=== PATIENT | female | born 1965 | race American Indian/Alaskan Native ===

== ENCOUNTER 2021-05-02 10:09 | Inpatient (IN) | payer MEDICARE ==
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
--- NOTE | 2021-05-02 12:25 | Cat Scan Report ---
CT BRAIN: 05/02/2021 INDICATION / CLINICAL INFORMATION: Altered Mental Status. COMPARISON: None available. FINDINGS: BRAIN/INTRACRANIAL STRUCTURES: Unenhanced CT images of the brain demonstrate no evidence of acute int racranial abnormality. Ventricles and sulci are prominent in size for a patient of this age, consistent with pronounced diff use cerebral atrophy. Moderate chronic white matter hypoattenuation is present in the periventricular white matter of the c erebral hemispheres, predominantly in the frontal lobes. There is no evidence of acute large vessel territory ischemic injury, hemorrhage, or mass. There are no abnormal extra-axial fluid collections. EXTRACRANIAL STRUCTURES: Unremarkable. IMPRESSION: No acute abnormality. Prominent diffuse cerebral atrophy. All CT scans at this location are performed using dose reduction to ALARA by means of automated expos ure control. Signer Name: Rehan Miner MD Signed: 05/02/2021 12:20 PM Workstation Name: [id number]
[2021-05-02 12:59] LABS: Basophils % (Auto) 0.3 % (0.0-1.8); Hematocrit 37.5 % (30.3-42.9); Hemoglobin 12.4 gm/dl (10.1-14.3); Lymphocytes # (Auto) 0.8 K/mm3 (1.2-5.4); Lymphocytes % (Auto) 13.8 % (13.4-35.0); Mean Corpuscular HGB Conc 33 % (30-34); Mean Corpuscular Volume 88 fl (79-97); Monocytes # (Auto) 0.4 K/mm3 (0.0-0.8); Monocytes % (Auto) 7.6 % (0.0-7.3); Platelet Count 227 K/mm3 (140-440); Red Blood Count 4.27 M/mm3 (3.65-5.03); Red Cell Distribution Width 16.2 % (13.2-15.2)
[2021-05-02 13:05] LABS: INR 0.99 (0.87-1.13)
[2021-05-02 13:06] LABS: Partial Thromboplastin Time 25.8 Sec. (24.2-36.6)
--- NOTE | 2021-05-02 13:14 | XRay Report ---
CHEST 1 VIEW 05/02/2021 1:02 PM INDICATION / CLINICAL INFORMATION: AMS. COMPARISON: None available. FINDINGS: SUPPORT DEVICES: None. HEART / MEDIASTINUM: No significant abnormality. LUNGS / PLEURA: No significant pulmonary or pleural abnormality. Underlying COPD is present. No pneum othorax. ADDITIONAL FINDINGS: No significant additional findings. IMPRESSION: No acute abnormality. Signer Name: Ferny Barnes MD Signed: 05/02/2021 1:09 PM Workstation Name: [email or web address]
[2021-05-02 13:20] LABS: Alanine Aminotransferase 30 units/L (7-56); Albumin 3.3 g/dL (3.9-5); BUN/Creatinine Ratio 31; Blood Urea Nitrogen 25 mg/dL (7-17); Calcium 8.7 mg/dL (8.4-10.2); Hemolysis Index 6
[2021-05-02] MEDS ORDERED: SODIUM CHLORIDE 0.9% 1000 ML 1,000 ML IV ONE (13:24)
[2021-05-02 13:31] LABS: Chol/HDL Ratio 3.59 %; HDL Cholesterol 47 mg/dL (40-59); LDL Cholesterol,Direct 98 mg/dL (50-130)
[2021-05-02] MEDS ORDERED: ZIPRASIDONE MESYLATE 20 MG VIAL IM ONE (16:38)
[2021-05-02] MEDS ORDERED: ZIPRASIDONE MESYLATE 20 MG VIAL IM PRN (18:13)
[2021-05-02 19:18] LABS: Bilirubin,Urine NEG (Negative); Blood,Urine MOD (Negative); Color,Urine Yellow (Yellow); Mucus,Urine FEW /HPF
[2021-05-02 19:21] LABS: Amphetamine Screen,Urine Negative; Benzodiazepines Screen,Urine Negative; Cannabinoid Screen,Urine Negative; Cocaine Screen,Urine Negative; Methadone Screen,Urine Negative; Opiate Screen,Urine Negative
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
--- NOTE | 2021-05-05 13:32 | XRay Report ---
CHEST 1 VIEW INDICATION: hypoxia. COMPARISON: 05/02/2021 FINDINGS: Support devices: None. Heart: Within normal limits. Lungs/Pleura: No acute air space or interstitial disease. Moderate to severe emphysematous changes ar e again noted. No pneumothorax. Additional findings: None. IMPRESSION: No acute findings. Advanced emphysematous changes. Signer Name: Bari Mejía Jr, MD Signed: 05/05/2021 1:28 PM Workstation Name: [id number]
[2021-05-05 14:55] LABS: Basophils # (Auto) 0.1 K/mm3 (0.0-0.1); Basophils % (Auto) 1.2 % (0.0-1.8); Eosinophils % (Auto) 0.7 % (0.0-4.3); Hematocrit 38.8 % (30.3-42.9); Hemoglobin 12.8 gm/dl (10.1-14.3); Lymphocytes % (Auto) 23.3 % (13.4-35.0); Mean Corpuscular HGB Conc 33 % (30-34); Mean Corpuscular Volume 88 fl (79-97); Monocytes # (Auto) 0.3 K/mm3 (0.0-0.8); Monocytes % (Auto) 6.1 % (0.0-7.3); Platelet Count 296 K/mm3 (140-440); Red Blood Count 4.42 M/mm3 (3.65-5.03); Red Cell Distribution Width 15.6 % (13.2-15.2)
[2021-05-05 15:39] LABS: BUN/Creatinine Ratio 23; Blood Urea Nitrogen 14 mg/dL (7-17); Calcium 9.3 mg/dL (8.4-10.2); Hemolysis Index 5
[2021-05-05] MEDS ORDERED: POTASSIUM CHLORIDE ER 20 MEQ TAB PO ONE (15:41)
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
[2021-05-05] MEDS ORDERED: ONDANSETRON 4 MG/2 ML INJ IV PRN ×2 (22:39→22:45)
[2021-05-05] MEDS ORDERED: ACETAMINOPHEN 325 MG TAB PO PRN ×2 (22:39→22:45)
[2021-05-05] MEDS ORDERED: HYDROmorphone 1 MG/1 ML INJ IV PRN (22:45)
[2021-05-05] MEDS ORDERED: SODIUM CHLORIDE 0.9% 1000 ML 1,000 ML IV SCH (22:45)
[2021-05-05] MEDS ORDERED: oxyCODONE /ACETAMINOPHEN 5-325MG TAB PO PRN (22:45)
[2021-05-06] MEDS: dexAMETHasone 4 MG/ML VIAL IV SCH ×2 (01:00→22:52)
[2021-05-06] MEDS: AZITHROMYCIN/NS 500 MG/250 ML 500 MG/250 ML BAG IV SCH ×2 (01:00→22:51)
[2021-05-06] MEDS: cefTRIAXone/NS 2 GM/100 ML 2 GM/100 ML BAG IV SCH (10:12)
[2021-05-06] MEDS: FAMOTIDINE 20 MG TAB PO SCH ×2 (10:12→22:50)
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
[2021-05-06] MEDS: POTASSIUM CHLORIDE 10 MEQ 10 MEQ/100 ML BAG IV SCH ×2 (13:45→14:45)
[2021-05-07 07:45] LABS: Blood Urea Nitrogen 11 mg/dL (7-17); Calcium 8.8 mg/dL (8.4-10.2); Hemolysis Index 2
[2021-05-07 07:47] LABS: BUN/Creatinine Ratio 18
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
[2021-05-07] MEDS: FAMOTIDINE 20 MG TAB PO SCH ×2 (11:00→23:30)
[2021-05-07] MEDS: cefTRIAXone/NS 2 GM/100 ML 2 GM/100 ML BAG IV SCH (11:35)
--- NOTE | 2021-05-07 12:21 | Consultation ---
History of Present Illness - Reason for Consult Consult date: 05/07/21 COVID-19 - History of Present Illness 56 old [id number] female with history of stroke, admitted due to altered mental status. Patient tested positive for COVID-19 on 05/03/2021. Patient was found hypoxic at home. Patient is bedridden. O2 sat dropped to 86% on room air. Chest x-ray shows no acute infiltrates. Review of Systems: reviewed ED and H&P notes. Review of system deferred to minimize COVID-19 transmission. Medications and Allergies Allergies Allergy/AdvReac Type Severity Reaction Status Date / Time No Known Allergies Allergy Unverified 05/02/21 11:07 Home Medications Medication Instructions Recorded Confirmed Last Taken Type hydroCHLOROthiazide 25 mg PO DAILY #30 tablet 11/25/14 Unknown Rx [Hydrochlorothiazide] Active Meds: Active Medications Acetaminophen (Acetaminophen 325 Mg Tab) 650 mg PO Q4H PRN PRN Reason: Pain MILD(1-3)/Fever >100.5/DEVLIN Dexamethasone (Dexamethasone 4 Mg/Ml Vial) 8 mg IV Q24H [facility] Last Admin: 05/06/21 22:52 Dose: 8 mg Documented by: Famotidine (Famotidine 20 Mg Tab) 20 mg PO BID [facility] Last Admin: 05/06/21 22:50 Dose: 20 mg Documented by: Hydromorphone HCl (Hydromorphone 1 Mg/1 Ml Inj) 0.5 mg IV Q3H PRN PRN Reason: Pain , Severe (7-10) Azithromycin (Zithromax/Ns) 500 mg in 250 mls @ 250 mls/hr IV Q24H [facility] Last Admin: 05/06/21 22:51 Dose: 250 mls/hr Documented by: Ceftriaxone Sodium (Rocephin/Ns 2 Gm/100 Ml) 2 gm in 100 mls @ 200 mls/hr IV Q24HR [facility]; Protocol Last Admin: 05/06/21 10:12 Dose: 200 mls/hr Documented by: Ondansetron HCl (Ondansetron 4 Mg/2 Ml Inj) 4 mg IV Q8H PRN PRN Reason: Nausea And Vomiting Oxycodone/Acetaminophen (Oxycodone /Acetaminophen 5-325mg Tab) 1 tab PO Q6H PRN PRN Reason: Pain, Moderate (4-6) Sodium Chloride (Sodium Chloride 0.9% 10 Ml Flush Syringe) 10 ml IV BID [facility] Last Admin: 05/06/21 22:50 Dose: 10 ml Documented by: Sodium Chloride (Sodium Chloride 0.9% 10 Ml Flush Syringe) 10 ml IV PRN PRN PRN Reason: LINE FLUSH Sodium Chloride (Sodium Chloride 0.9% 10 Ml Flush Syringe) 10 ml IV BID [facility] Last Admin: 05/06/21 22:51 Dose: 10 ml Documented by: Sodium Chloride (Sodium Chloride 0.9% 10 Ml Flush Syringe) 10 ml IV PRN PRN PRN Reason: LINE FLUSH Physical Examination - Physical Exam Narrative exam: Physical exam deferred to minimize COVID-19 transmission during pandemic. ER and internal medicine physical examination notes reviewed. - Constitutional Vitals: Vital Signs Temp Pulse Resp BP Pulse Ox 98.9 F 86 18 124/89 97 05/07/21 03:30 05/07/21 03:30 05/07/21 03:30 05/07/21 03:30 05/07/21 12:07 Temperature -Last 24 Hours Temperature 98.9 F Temperature 97.9 F Results - Labs CBC & Chem 7: 05/05/21 13:42 05/07/21 06:58 Labs: Abnormal lab results 05/06/21 05/07/21 Range/Units 09:00 06:58 Chloride 107.7 H (98-107) mmol/L Glucose 119 H (65-100) mg/dL Coronavirus (PCR) Positive A (Negative) Assessment and Plan Cultures: SARS CoV2 PCR positive Assessment: 56 old [id number] female with history of stroke, admitted due to altered mental status. Patient tested positive for COVID-19 on 05/03/2021: #Severe COVID infection: Chest x-ray without consolidation. Elevated markers. #Acute hypoxemic respiratory failure: O2 sat dropped to 86% initially. Patient currently on room air. #Elevated LFTs: Mild, from COVID #Acute mental status: Likely from COVID-19. Recommendations: -Continue dexamethasone 6 mg IV/PO daily for 10 days -No indication for remdesivir as patient is on room air -Monitor inflammatory markers - ferritin, Ddimer, CRP, LDH -Continue anticoagulation per System Protocol -Prone positioning as possible -Stop ceftriaxone and azithromycin, procalcitonin <0.25 ng/mL All laboratory, cultures and imaging were reviewed. Will follow Shantal Vela MD Infectious Diseases Integrated Specialist [facility] ([facility] M [phone] O [phone]
[2021-05-07] MEDS: dexAMETHasone 4 MG/ML VIAL IV SCH (23:32)
[2021-05-07] MEDS: AZITHROMYCIN/NS 500 MG/250 ML 500 MG/250 ML BAG IV SCH (23:40)
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
[2021-05-08] MEDS: cefTRIAXone/NS 2 GM/100 ML 2 GM/100 ML BAG IV SCH (10:36)
[2021-05-08] MEDS: FAMOTIDINE 20 MG TAB PO SCH ×2 (10:36→21:40)
[2021-05-08] MEDS: ENOXAPARIN 40 MG/0.4 ML INJ SUB-Q SCH (10:37)
[2021-05-08] MEDS: DEXAMETHASONE 4 MG TAB PO SCH (14:01)
--- NOTE | 2021-05-08 14:21 | Progress Note ---
Assessment and Plan Cultures: SARS CoV2 PCR positive 05/02/2021 blood culture: No growth Assessment: 56 old [id number] female with history of stroke, admitted due to altered mental status. Patient tested positive for COVID-19 on 05/03/2021: #COVID infection: Chest x-ray without consolidation. Elevated markers. #Acute hypoxia: O2 sat briefly dropped to 86% initially. Patient currently on room air. #Elevated LFTs: Mild, from COVID #Encephalopathy, aphasic and bedbound #HIV screening test positive Recommendations: -HIV RNA PCR, CD4 count ordered -Continue dexamethasone 6 mg IV/PO daily for 10 days -No indication for remdesivir as patient is on room air -Monitor inflammatory markers - ferritin, Ddimer, CRP, LDH -Continue anticoagulation per System Protocol Caro Sullivan MD, FACP [facility] ([facility]) O: [phone] F: [phone] Subjective Date of service: 05/08/21 Principal diagnosis: Altered mental status Interval history: Afebrile. Weaned to room air. Patient bedbound, nonverbal at baseline. Objective - Exam Narrative Exam: Physical Exam (reviewed in chart to minimize risk of transmission) Constitutional: deferred Head, Ears, Nose: deferred Eyes: deferred Neck: deferred Oral: deferred Cardiovascular: deferred Respiratory: deferred GI: deferred Musculoskeletal: deferred Skin: deferred Hem/Lymphatic: deferred Psych: deferred Neurological: deferred - Constitutional Vitals: Vital Signs Temp Pulse Resp BP Pulse Ox 98.6 F 85 16 118/70 96 05/08/21 11:29 05/08/21 11:29 05/08/21 11:29 05/08/21 11:29 05/08/21 11:29 Temperature -Last 24 Hours Temperature 98.6 F Temperature 98.0 F Temperature 98 F - Labs CBC & Chem 7: 05/05/21 13:42 05/07/21 06:58
[2021-05-08] MEDS ORDERED: amLODIPine 10 MG TAB PO ONE (18:41)
[2021-05-08] MEDS ORDERED: hydrALAZINE 20 MG/1 ML INJ IV ONE (18:41)
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
[2021-05-09] MEDS: FAMOTIDINE 20 MG TAB PO SCH ×2 (10:01→22:28)
[2021-05-09] MEDS: ENOXAPARIN 40 MG/0.4 ML INJ SUB-Q SCH (10:01)
[2021-05-09] MEDS: DEXAMETHASONE 4 MG TAB PO SCH (10:02)
--- NOTE | 2021-05-09 14:20 | Progress Note ---
Assessment and Plan Cultures: SARS CoV2 PCR positive 05/02/2021 blood culture: No growth Assessment: 56 old [id number] female with history of stroke, admitted due to altered mental status. Patient tested positive for COVID-19 on 05/03/2021: #COVID infection: Chest x-ray without consolidation. Elevated markers. #Acute hypoxia: O2 sat briefly dropped to 86% initially. Patient currently on room air. #Elevated LFTs: Mild, from COVID #Encephalopathy, aphasic and bedbound #HIV test positive: unclear why was the test done, regardless with positive test, will need full work up and if positive PCR, will need treatment. Recommendations: -f/u HIV RNA PCR, CD4 count -complete dexamethasone 6 mg IV/PO daily for 10 days -will need to follow up in ID clinic in 2-3 weeks for HIV RNA PCR and CD4 count results ID will sign off. Please call with questions. Caro Sullivan MD, FACP [facility] ([facility]) O: [phone] F: [phone] Subjective Date of service: 05/09/21 Principal diagnosis: Altered mental status Interval history: Afebrile. Remains on room air. Patient bedbound, nonverbal at baseline. Objective - Exam Narrative Exam: Physical Exam (reviewed in chart to minimize risk of transmission) Constitutional: deferred Head, Ears, Nose: deferred Eyes: deferred Neck: deferred Oral: deferred Cardiovascular: deferred Respiratory: deferred GI: deferred Musculoskeletal: deferred Skin: deferred Hem/Lymphatic: deferred Psych: deferred Neurological: deferred - Constitutional Vitals: Vital Signs Temp Pulse Resp BP Pulse Ox 98.2 F 104 H 20 134/76 96 05/09/21 06:15 05/09/21 06:15 05/09/21 06:15 05/09/21 06:15 05/09/21 10:23 Temperature -Last 24 Hours Temperature 98.2 F Temperature 98.6 F Temperature 99.8 F - Labs CBC & Chem 7: 05/05/21 13:42 05/07/21 06:58
--- NOTE | 2021-05-10 07:32 | Progress Note ---
Assessment and Plan Assessment and plan: 56 old [id number] female with history of stroke, admitted due to altered mental status. Patient tested positive for COVID-19 on 05/03/2021: COVID-19 infection Sepsis. Patient meets criteria given the tachycardia, altered mentation and COVID-19 infection Acute hypoxic respiratory failure Hypernatremia Transaminitis Toxic metabolic encephalopathy HIV screening test positive 05/09/2021. Physical therapy recommends SNF and awaiting placement per case management. Patient with positive Covid test 05/03 and 05/06. Follow-up HIV RNA PCR and CD4 count. Continue dexamethasone 6 mg IV for total of 10 days. No indication for remdesivir as patient is on room air. Continue to monitor inflammatory markers. Continue anticoagulation per protocol. 05/10/2021. Await SNF placement. However, patient with positive Covid test 05/03 and 05/06. Follow-up HIV RNA PCR and CD4 count. Continue dexamethasone 6 mg IV for total of 10 days. No indication for remdesivir as patient is on room air. Continue to monitor inflammatory markers. Continue anticoagulation per protocol. History Interval history: No new issues Hospitalist Physical - Constitutional Vitals: Temp Pulse Resp BP Pulse Ox 97.9 F 62 19 123/75 93 05/10/21 05:38 05/10/21 05:38 05/10/21 05:38 05/10/21 05:38 05/10/21 05:38 General appearance: Present: no acute distress - EENT Eyes: Present: PERRL, EOM intact ENT: hearing intact, clear oral mucosa, dentition normal - Neck Neck: Present: supple, normal ROM - Respiratory Respiratory effort: normal Respiratory: bilateral: CTA - Cardiovascular Rhythm: regular Heart Sounds: Present: S1 & S2. Absent: gallop, rub - Extremities Extremities: no ischemia, No edema, Full ROM - Abdominal General gastrointestinal: soft, non-tender, non-distended, normal bowel sounds - Integumentary Integumentary: Present: clear, warm, dry - Neurologic Neurologic: CNII-XII intact, moves all extremities HEART Score - HEART Score Troponin: Troponin T 0.030 ng/mL (0.00-0.029) H 05/02/21 19:22 Results - Labs CBC & Chem 7: 05/05/21 13:42 05/07/21 06:58 Labs: Laboratory Last Values WBC 4.5 K/mm3 (4.5-11.0) 05/05/21 13:42 RBC 4.42 M/mm3 (3.65-5.03) 05/05/21 13:42 Hgb 12.8 gm/dl (10.1-14.3) 05/05/21 13:42 Hct 38.8 % (30.3-42.9) 05/05/21 13:42 MCV 88 fl (79-97) 05/05/21 13:42 MCH 29 pg (28-32) 05/05/21 13:42 MCHC 33 % (30-34) 05/05/21 13:42 RDW 15.6 % (13.2-15.2) H 05/05/21 13:42 Plt Count 296 K/mm3 (140-440) 05/05/21 13:42 Lymph % (Auto) 23.3 % (13.4-35.0) 05/05/21 13:42 [place] % (Auto) 6.1 % (0.0-7.3) 05/05/21 13:42 Eos % (Auto) 0.7 % (0.0-4.3) 05/05/21 13:42 Baso % (Auto) 1.2 % (0.0-1.8) 05/05/21 13:42 Lymph # (Auto) 1.0 K/mm3 (1.2-5.4) L 05/05/21 13:42 [place] # (Auto) 0.3 K/mm3 (0.0-0.8) 05/05/21 13:42 Eos # (Auto) 0.0 K/mm3 (0.0-0.4) 05/05/21 13:42 Baso # (Auto) 0.1 K/mm3 (0.0-0.1) 05/05/21 13:42 Seg Neutrophils % 68.7 % (40.0-70.0) 05/05/21 13:42 Seg Neutrophils # 3.1 K/mm3 (1.8-7.7) 05/05/21 13:42 PT 13.6 Sec. (12.2-14.9) 05/02/21 12:19 INR 0.99 (0.87-1.13) 05/02/21 12:19 APTT 25.8 Sec. (24.2-36.6) 05/02/21 12:19 D-Dimer 665.29 ng/mlDDU (0-234) H 05/05/21 13:42 Sodium 143 mmol/L (137-145) 05/07/21 06:58 Potassium 4.4 mmol/L (3.6-5.0) D 05/07/21 06:58 Chloride 107.7 mmol/L (98-107) H 05/07/21 06:58 Carbon Dioxide 26 mmol/L (22-30) 05/07/21 06:58 Anion Gap 14 mmol/L 05/07/21 06:58 BUN 11 mg/dL (7-17) 05/07/21 06:58 Creatinine 0.6 mg/dL (0.6-1.2) 05/07/21 06:58 Estimated GFR > 60 ml/min 05/07/21 06:58 BUN/Creatinine Ratio 18 % 05/07/21 06:58 Glucose 119 mg/dL (65-100) H 05/07/21 06:58 Lactic Acid 1.10 mmol/L (0.7-2.0) 05/02/21 12:19 Calcium 8.8 mg/dL (8.4-10.2) 05/07/21 06:58 Ferritin 913.0 ng/mL (10.0-200.0) H 05/05/21 13:42 Total Bilirubin 0.30 mg/dL (0.1-1.2) 05/02/21 12:04 AST 77 units/L (5-40) H 05/02/21 12:04 ALT 30 units/L (7-56) 05/02/21 12:04 Alkaline Phosphatase 48 units/L (35-129) 05/02/21 12:04 Ammonia 33.0 umol/L (25-60) 05/02/21 12:19 Lactate Dehydrogenase 317 units/L (91-180) H 05/05/21 13:42 Troponin T 0.030 ng/mL (0.00-0.029) H 05/02/21 19:22 C-Reactive Protein 5.10 mg/dL (0.00-1.30) H 05/05/21 13:42 NT-Pro-B Natriuret Pep 243.4 pg/mL (0-900) 05/02/21 12:04 Total Protein 6.8 g/dL (6.3-8.2) 05/02/21 12:04 Albumin 3.3 g/dL (3.9-5) L 05/02/21 12:04 Albumin/Globulin Ratio 0.9 % 05/02/21 12:04 Triglycerides 140 mg/dL (2-149) 05/02/21 12:04 Cholesterol 169 mg/dL (50-199) 05/02/21 12:04 LDL Cholesterol Direct 98 mg/dL (50-130) 05/02/21 12:04 HDL Cholesterol 47 mg/dL (40-59) 05/02/21 12:04 Cholesterol/HDL Ratio 3.59 % 05/02/21 12:04 Procalcitonin 0.11 ng/mL (<0.15) 05/05/21 13:42 Urine Color Yellow (Yellow) 05/02/21 Unknown Urine Turbidity Clear (Clear) 05/02/21 Unknown Urine pH 7.0 (5.0-7.0) 05/02/21 Unknown Ur Specific [place] 1.014 (1.003-1.030) 05/02/21 Unknown Urine Protein 100 mg/dl mg/dL (Negative) 05/02/21 Unknown Urine Glucose (UA) Neg mg/dL (Negative) 05/02/21 Unknown Urine Ketones Neg mg/dL (Negative) 05/02/21 Unknown Urine Blood Mod (Negative) 05/02/21 Unknown Urine Nitrite Neg (Negative) 05/02/21 Unknown Urine Bilirubin Neg (Negative) 05/02/21 Unknown Urine Urobilinogen 2.0 mg/dL (<2.0) 05/02/21 Unknown Ur Leukocyte Esterase Sm (Negative) 05/02/21 Unknown Urine WBC (Auto) 5.0 /HPF (0.0-6.0) 05/02/21 Unknown Urine RBC (Auto) 3.0 /HPF (0.0-6.0) 05/02/21 Unknown U Epithel Cells (Auto) 2.0 /HPF (0-13.0) 05/02/21 Unknown Urine Mucus Few /HPF 05/02/21 Unknown Salicylates < 0.3 mg/dL (2.8-20.0) L 05/02/21 12:04 Urine Opiates Screen Negative 05/02/21 Unknown Urine Methadone Screen Negative 05/02/21 Unknown Acetaminophen 5.0 ug/mL (10.0-30.0) L 05/02/21 12:04 Ur Barbiturates Screen Negative 05/02/21 Unknown Ur Phencyclidine Scrn Negative 05/02/21 Unknown Ur Amphetamines Screen Negative 05/02/21 Unknown U Benzodiazepines Scrn Negative 05/02/21 Unknown Urine Cocaine Screen Negative 05/02/21 Unknown U Marijuana (THC) Screen Negative 05/02/21 Unknown Drugs of Abuse Note Disclamer 05/02/21 Unknown Plasma/Serum Alcohol < 0.01 % (0-0.07) 05/02/21 12:04 Coronavirus (PCR) Positive (Negative) A 05/06/21 09:00 HIV 1&2 Antibody Rapid Reactive (Non React) 05/08/21 08:12 HIV P24 Antigen Non react (Non React) 05/08/21 08:12 Dennis/IV: Voiding Method Incontinent Active Medications - Current Medications Current Medications: Generic Name Dose Route Start Last Admin Trade Name Freq PRN Reason Stop Dose Admin Acetaminophen 650 mg 05/05/21 22:39 Acetaminophen 325 Mg Tab PO Q4H PRN Pain MILD(1-3)/Fever >100.5/DEVLIN Dexamethasone 6 mg 05/08/21 12:00 05/09/21 10:02 Dexamethasone 4 Mg Tab PO 05/14/21 10:01 6 mg DAILY DIANNE Administration Enoxaparin Sodium 40 mg 05/08/21 10:00 05/09/21 10:01 Enoxaparin 40 Mg/0.4 Ml Inj SUB-Q 40 mg QDAY@1000 DIANNE Administration Famotidine 20 mg 05/06/21 10:00 05/09/21 22:28 Famotidine 20 Mg Tab PO 20 mg BID DIANNE Administration Hydromorphone HCl 0.5 mg 05/05/21 22:45 Hydromorphone 1 Mg/1 Ml Inj IV Q3H PRN Pain , Severe (7-10) Ondansetron HCl 4 mg 05/05/21 22:39 Ondansetron 4 Mg/2 Ml Inj IV Q8H PRN Nausea And Vomiting Oxycodone/Acetaminophen 1 tab 05/05/21 22:45 Oxycodone /Acetaminophen 5-325mg Tab PO Q6H PRN Pain, Moderate (4-6) Sodium Chloride 10 ml 05/06/21 10:00 05/09/21 22:28 Sodium Chloride 0.9% 10 Ml Flush Syringe IV 10 ml BID DIANNE Administration Sodium Chloride 10 ml 05/05/21 22:39 Sodium Chloride 0.9% 10 Ml Flush Syringe IV PRN PRN LINE FLUSH Sodium Chloride 10 ml 05/06/21 10:00 05/09/21 22:29 Sodium Chloride 0.9% 10 Ml Flush Syringe IV Not Given BID DIANNE Sodium Chloride 10 ml 05/05/21 22:45 Sodium Chloride 0.9% 10 Ml Flush Syringe IV PRN PRN LINE FLUSH Nutrition/Malnutrition Assess - Dietary Evaluation Nutrition/Malnutrition Findings: Nutrition Notes Start: 05/08/21 12:06 Freq: Status: Active Protocol: Document 05/08/21 12:06 JUAN (Rec: 05/08/21 12:12 [email or web address] [email or web address]) Nutrition Notes Need for Assessment generated from: human resources partner,MST Initial or Follow up Assessment Current Diagnosis Hypertension,Malnutrition, Stroke Other Pertinent Diagnosis COVID-19 (+), AMS, HIV, Aphasia Current Diet Cardiac + Ensure Enlive daily Labs/Tests Reviewed Pertinent Medications Decadron Height 5 ft 9 in Weight 49.89 kg [place] Body Weight (kg) 65.90 BMI 16.2 Intake Prior to Admission Poor Weight Status Underweight Subjective/Other Information Pt screened for malnutrition risk and low BMI. Pt non- verbal sec to hx of CVA. 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 She consumed 75% of breakfast this am. Burn Absent Trauma Absent Minimum of two criteria Yes Energy Intake (severe) < or equal to 50% Estimated Energy Requirement > or equal to 5 days Body Fat Depletion Moderate depletion (severe) Muscle Mass Moderate Depletion (severe) Protein-Calorie Malnutrition Severe #1 Nutrition Diagnosis Malnutrition Etiology chronic illness As Evidenced by Signs and Symptoms inadequate PO intake, BMI <18. 5, signs of dehydration Is patient on ventilator? No Is Patient Ambulatory and/or Out of Bed No REE-([facility]-confined to bed) 1388.712 Kcal/Kg value to use for calculation 35 Approximate Energy Requirements Using 1746 kcal/Kg Calculation Used for Recommendations Kcal/kg Additional Notes Pro needs 1.2-1.5g/k-75g/ day Fluid needs 1ml/kcal Nutrition Intervention Change Diet Order: Continue current diet order Add Supplement/Snack (indicate name/kcal Ensure Enlive TID /protein ) Provides kCal: 1,050 Provides Protein (gm) 60 Goal #1 PO intake of meals plus ONS to meet 100% energy and pro needs Goal #2 Wt maintenance and/or gain Anticipated Discharge Needs: Continue ONS 2-3 times daily for wt maintenance Follow-Up By: 05/10/21 Additional Comments F/U: intakes (meals, ONS)
[2021-05-10] MEDS: FAMOTIDINE 20 MG TAB PO SCH ×2 (11:07→21:56)
[2021-05-10] MEDS: ENOXAPARIN 40 MG/0.4 ML INJ SUB-Q SCH (11:07)
[2021-05-10] MEDS: DEXAMETHASONE 4 MG TAB PO SCH (11:07)
--- NOTE | 2021-05-10 17:17 | Electrocardiograph Report ---
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
--- NOTE | 2021-05-11 10:19 | Progress Note ---
Assessment and Plan Assessment and plan: 56 old [id number] female with history of stroke, admitted due to altered mental status. Patient tested positive for COVID-19 on 05/03/2021: COVID-19 infection Sepsis. Patient meets criteria given the tachycardia, altered mentation and COVID-19 infection Acute hypoxic respiratory failure Hypernatremia Transaminitis Toxic metabolic encephalopathy HIV screening test positive 05/09/2021. Physical therapy recommends SNF and awaiting placement per case management. Patient with positive Covid test 05/03 and 05/06. Follow-up HIV RNA PCR and CD4 count. Continue dexamethasone 6 mg IV for total of 10 days. No indication for remdesivir as patient is on room air. Continue to monitor inflammatory markers. Continue anticoagulation per protocol. 05/10/2021. Await SNF placement. However, patient with positive Covid test 05/03 and 05/06. Follow-up HIV RNA PCR and CD4 count. Continue dexamethasone 6 mg IV for total of 10 days. No indication for remdesivir as patient is on room air. Continue to monitor inflammatory markers. Continue anticoagulation per protocol. 05/11/2021. No new issues. Await SNF placement. However, patient with positive Covid test 05/03 and 05/06. Follow-up HIV RNA PCR and CD4 count. Continue dexamethasone 6 mg IV for total of 10 days. No indication for remdesivir as patient is on room air. Continue to monitor inflammatory markers. Continue anticoagulation per protocol. History Interval history: No new issues Hospitalist Physical - Constitutional Vitals: Temp Pulse Resp BP Pulse Ox 98.2 F 61 18 119/93 100 05/11/21 03:54 05/11/21 03:54 05/11/21 03:54 05/11/21 03:54 05/11/21 08:36 General appearance: Present: no acute distress - EENT Eyes: Present: PERRL, EOM intact ENT: hearing intact, clear oral mucosa, dentition normal - Neck Neck: Present: supple, normal ROM - Respiratory Respiratory effort: normal Respiratory: bilateral: CTA - Cardiovascular Rhythm: regular Heart Sounds: Present: S1 & S2. Absent: gallop, rub - Extremities Extremities: no ischemia, No edema, Full ROM - Abdominal General gastrointestinal: soft, non-tender, non-distended, normal bowel sounds - Integumentary Integumentary: Present: clear, warm, dry - Neurologic Neurologic: CNII-XII intact, moves all extremities HEART Score - HEART Score Troponin: Troponin T 0.030 ng/mL (0.00-0.029) H 05/02/21 19:22 Results - Labs CBC & Chem 7: 05/05/21 13:42 05/07/21 06:58 Labs: Laboratory Last Values WBC 4.5 K/mm3 (4.5-11.0) 05/05/21 13:42 RBC 4.42 M/mm3 (3.65-5.03) 05/05/21 13:42 Hgb 12.8 gm/dl (10.1-14.3) 05/05/21 13:42 Hct 38.8 % (30.3-42.9) 05/05/21 13:42 MCV 88 fl (79-97) 05/05/21 13:42 MCH 29 pg (28-32) 05/05/21 13:42 MCHC 33 % (30-34) 05/05/21 13:42 RDW 15.6 % (13.2-15.2) H 05/05/21 13:42 Plt Count 296 K/mm3 (140-440) 05/05/21 13:42 Lymph % (Auto) 23.3 % (13.4-35.0) 05/05/21 13:42 [place] % (Auto) 6.1 % (0.0-7.3) 05/05/21 13:42 Eos % (Auto) 0.7 % (0.0-4.3) 05/05/21 13:42 Baso % (Auto) 1.2 % (0.0-1.8) 05/05/21 13:42 Lymph # (Auto) 1.0 K/mm3 (1.2-5.4) L 05/05/21 13:42 [place] # (Auto) 0.3 K/mm3 (0.0-0.8) 05/05/21 13:42 Eos # (Auto) 0.0 K/mm3 (0.0-0.4) 05/05/21 13:42 Baso # (Auto) 0.1 K/mm3 (0.0-0.1) 05/05/21 13:42 Seg Neutrophils % 68.7 % (40.0-70.0) 05/05/21 13:42 Seg Neutrophils # 3.1 K/mm3 (1.8-7.7) 05/05/21 13:42 PT 13.6 Sec. (12.2-14.9) 05/02/21 12:19 INR 0.99 (0.87-1.13) 05/02/21 12:19 APTT 25.8 Sec. (24.2-36.6) 05/02/21 12:19 D-Dimer 665.29 ng/mlDDU (0-234) H 05/05/21 13:42 Sodium 143 mmol/L (137-145) 05/07/21 06:58 Potassium 4.4 mmol/L (3.6-5.0) D 05/07/21 06:58 Chloride 107.7 mmol/L (98-107) H 05/07/21 06:58 Carbon Dioxide 26 mmol/L (22-30) 05/07/21 06:58 Anion Gap 14 mmol/L 05/07/21 06:58 BUN 11 mg/dL (7-17) 05/07/21 06:58 Creatinine 0.6 mg/dL (0.6-1.2) 05/07/21 06:58 Estimated GFR > 60 ml/min 05/07/21 06:58 BUN/Creatinine Ratio 18 % 05/07/21 06:58 Glucose 119 mg/dL (65-100) H 05/07/21 06:58 POC Glucose 142 mg/dL (70-105) H 05/11/21 08:06 Lactic Acid 1.10 mmol/L (0.7-2.0) 05/02/21 12:19 Calcium 8.8 mg/dL (8.4-10.2) 05/07/21 06:58 Ferritin 913.0 ng/mL (10.0-200.0) H 05/05/21 13:42 Total Bilirubin 0.30 mg/dL (0.1-1.2) 05/02/21 12:04 AST 77 units/L (5-40) H 05/02/21 12:04 ALT 30 units/L (7-56) 05/02/21 12:04 Alkaline Phosphatase 48 units/L (35-129) 05/02/21 12:04 Ammonia 33.0 umol/L (25-60) 05/02/21 12:19 Lactate Dehydrogenase 317 units/L (91-180) H 05/05/21 13:42 Troponin T 0.030 ng/mL (0.00-0.029) H 05/02/21 19:22 C-Reactive Protein 5.10 mg/dL (0.00-1.30) H 05/05/21 13:42 NT-Pro-B Natriuret Pep 243.4 pg/mL (0-900) 05/02/21 12:04 Total Protein 6.8 g/dL (6.3-8.2) 05/02/21 12:04 Albumin 3.3 g/dL (3.9-5) L 05/02/21 12:04 Albumin/Globulin Ratio 0.9 % 05/02/21 12:04 Triglycerides 140 mg/dL (2-149) 05/02/21 12:04 Cholesterol 169 mg/dL (50-199) 05/02/21 12:04 LDL Cholesterol Direct 98 mg/dL (50-130) 05/02/21 12:04 HDL Cholesterol 47 mg/dL (40-59) 05/02/21 12:04 Cholesterol/HDL Ratio 3.59 % 05/02/21 12:04 Procalcitonin 0.11 ng/mL (<0.15) 05/05/21 13:42 Urine Color Yellow (Yellow) 05/02/21 Unknown Urine Turbidity Clear (Clear) 05/02/21 Unknown Urine pH 7.0 (5.0-7.0) 05/02/21 Unknown Ur Specific [place] 1.014 (1.003-1.030) 05/02/21 Unknown Urine Protein 100 mg/dl mg/dL (Negative) 05/02/21 Unknown Urine Glucose (UA) Neg mg/dL (Negative) 05/02/21 Unknown Urine Ketones Neg mg/dL (Negative) 05/02/21 Unknown Urine Blood Mod (Negative) 05/02/21 Unknown Urine Nitrite Neg (Negative) 05/02/21 Unknown Urine Bilirubin Neg (Negative) 05/02/21 Unknown Urine Urobilinogen 2.0 mg/dL (<2.0) 05/02/21 Unknown Ur Leukocyte Esterase Sm (Negative) 05/02/21 Unknown Urine WBC (Auto) 5.0 /HPF (0.0-6.0) 05/02/21 Unknown Urine RBC (Auto) 3.0 /HPF (0.0-6.0) 05/02/21 Unknown U Epithel Cells (Auto) 2.0 /HPF (0-13.0) 05/02/21 Unknown Urine Mucus Few /HPF 05/02/21 Unknown Salicylates < 0.3 mg/dL (2.8-20.0) L 05/02/21 12:04 Urine Opiates Screen Negative 05/02/21 Unknown Urine Methadone Screen Negative 05/02/21 Unknown Acetaminophen 5.0 ug/mL (10.0-30.0) L 05/02/21 12:04 Ur Barbiturates Screen Negative 05/02/21 Unknown Ur Phencyclidine Scrn Negative 05/02/21 Unknown Ur Amphetamines Screen Negative 05/02/21 Unknown U Benzodiazepines Scrn Negative 05/02/21 Unknown Urine Cocaine Screen Negative 05/02/21 Unknown U Marijuana (THC) Screen Negative 05/02/21 Unknown Drugs of Abuse Note Disclamer 05/02/21 Unknown Plasma/Serum Alcohol < 0.01 % (0-0.07) 05/02/21 12:04 Coronavirus (PCR) Positive (Negative) A 05/06/21 09:00 HIV 1&2 Antibody Rapid Reactive (Non React) 05/08/21 08:12 HIV P24 Antigen Non react (Non React) 05/08/21 08:12 Dennis/IV: Voiding Method Incontinent Active Medications - Current Medications Current Medications: Generic Name Dose Route Start Last Admin Trade Name Freq PRN Reason Stop Dose Admin Acetaminophen 650 mg 05/05/21 22:39 Acetaminophen 325 Mg Tab PO Q4H PRN Pain MILD(1-3)/Fever >100.5/DEVLIN Dexamethasone 6 mg 05/08/21 12:00 05/10/21 11:07 Dexamethasone 4 Mg Tab PO 05/14/21 10:01 6 mg DAILY DIANNE Administration Enoxaparin Sodium 40 mg 05/08/21 10:00 05/10/21 11:07 Enoxaparin 40 Mg/0.4 Ml Inj SUB-Q 40 mg QDAY@1000 DIANNE Administration Famotidine 20 mg 05/06/21 10:00 05/10/21 21:56 Famotidine 20 Mg Tab PO 20 mg BID DIANNE Administration Hydromorphone HCl 0.5 mg 05/05/21 22:45 Hydromorphone 1 Mg/1 Ml Inj IV Q3H PRN Pain , Severe (7-10) Ondansetron HCl 4 mg 05/05/21 22:39 Ondansetron 4 Mg/2 Ml Inj IV Q8H PRN Nausea And Vomiting Oxycodone/Acetaminophen 1 tab 05/05/21 22:45 Oxycodone /Acetaminophen 5-325mg Tab PO Q6H PRN Pain, Moderate (4-6) Sodium Chloride 10 ml 05/06/21 10:00 05/10/21 21:56 Sodium Chloride 0.9% 10 Ml Flush Syringe IV 10 ml BID DIANNE Administration Sodium Chloride 10 ml 05/05/21 22:39 Sodium Chloride 0.9% 10 Ml Flush Syringe IV PRN PRN LINE FLUSH Sodium Chloride 10 ml 05/06/21 10:00 05/10/21 21:56 Sodium Chloride 0.9% 10 Ml Flush Syringe IV Not Given BID DIANNE Sodium Chloride 10 ml 05/05/21 22:45 Sodium Chloride 0.9% 10 Ml Flush Syringe IV PRN PRN LINE FLUSH Nutrition/Malnutrition Assess - Dietary Evaluation Nutrition/Malnutrition Findings: Nutrition Notes Start: 05/08/21 12:06 Freq: Status: Active Protocol: Document 05/10/21 08:50 SG (Rec: 05/10/21 09:05 [id number]) Nutrition Notes Need for Assessment generated from: Low BMI Initial or Follow up Brief Note Current Diet Cardiac, Pureed Diet Height 5 ft 9 in Weight 49.89 kg [place] Body Weight (kg) 65.90 BMI 16.2 Subjective/Other Information Pt has low BMI, f/u for intakes and ONS. Pt's intake is currently 100% and diet tolerated per ADL assessment #1 Diagnosis Progress(for reassessment Continues documentation) Nutrition Intervention Goal #1 PO intake of meals plus ONS to meet 100% energy and pro needs Goal #2 Wt maintenance and/or gain Anticipated Discharge Needs: Continue ONS 2-3 times daily for wt maintenance Follow-Up By: 05/12/21 Additional Comments F/U: intakes
[2021-05-11] MEDS: DEXAMETHASONE 4 MG TAB PO SCH (10:28)
[2021-05-11] MEDS: ENOXAPARIN 40 MG/0.4 ML INJ SUB-Q SCH (10:28)
[2021-05-11] MEDS: FAMOTIDINE 20 MG TAB PO SCH ×2 (10:29→22:46)
--- NOTE | 2021-05-12 08:24 | Progress Note ---
Assessment and Plan Assessment and plan: 56 old [id number] female with history of stroke, admitted due to altered mental status. Patient tested positive for COVID-19 on 05/03/2021: COVID-19 infection Sepsis. Patient meets criteria given the tachycardia, altered mentation and COVID-19 infection Acute hypoxic respiratory failure Hypernatremia Transaminitis Toxic metabolic encephalopathy HIV screening test positive 05/09/2021. Physical therapy recommends SNF and awaiting placement per case management. Patient with positive Covid test 05/03 and 05/06. Follow-up HIV RNA PCR and CD4 count. Continue dexamethasone 6 mg IV for total of 10 days. No indication for remdesivir as patient is on room air. Continue to monitor inflammatory markers. Continue anticoagulation per protocol. 05/10/2021. Await SNF placement. However, patient with positive Covid test 05/03 and 05/06. Follow-up HIV RNA PCR and CD4 count. Continue dexamethasone 6 mg IV for total of 10 days. No indication for remdesivir as patient is on room air. Continue to monitor inflammatory markers. Continue anticoagulation per protocol. 05/11/2021. No new issues. Await SNF placement. However, patient with positive Covid test 05/03 and 05/06. Follow-up HIV RNA PCR and CD4 count. Continue dexamethasone 6 mg IV for total of 10 days. No indication for remdesivir as patient is on room air. Continue to monitor inflammatory markers. Continue anticoagulation per protocol. 05/12/21. No new issues. Await SNF placement. However, patient with positive Covid test 05/03 and 05/06. Follow-up HIV RNA PCR and CD4 count. Continue dexamethasone 6 mg IV for total of 10 days. No indication for remdesivir as patient is on room air. Continue to monitor inflammatory markers. Continue anticoagulation per protocol. CM reports Ketty Iveyz @ [facility] states she thinks she will be able to approve Subacute for [place]. Authorization pending. History Interval history: No new issues Hospitalist Physical - Constitutional Vitals: Temp Pulse Resp BP Pulse Ox 97.5 F L 84 19 112/59 97 05/11/21 22:46 05/11/21 22:46 05/11/21 22:46 05/11/21 22:46 05/11/21 22:46 General appearance: Present: no acute distress - EENT Eyes: Present: PERRL, EOM intact ENT: hearing intact, clear oral mucosa, dentition normal - Neck Neck: Present: supple, normal ROM - Respiratory Respiratory effort: normal Respiratory: bilateral: CTA - Cardiovascular Rhythm: regular Heart Sounds: Present: S1 & S2. Absent: gallop, rub - Extremities Extremities: no ischemia, No edema, Full ROM - Abdominal General gastrointestinal: soft, non-tender, non-distended, normal bowel sounds - Integumentary Integumentary: Present: clear, warm, dry - Neurologic Neurologic: CNII-XII intact, moves all extremities HEART Score - HEART Score Troponin: Troponin T 0.030 ng/mL (0.00-0.029) H 05/02/21 19:22 Results - Labs CBC & Chem 7: 05/05/21 13:42 05/07/21 06:58 Labs: Laboratory Last Values WBC 4.5 K/mm3 (4.5-11.0) 05/05/21 13:42 RBC 4.42 M/mm3 (3.65-5.03) 05/05/21 13:42 Hgb 12.8 gm/dl (10.1-14.3) 05/05/21 13:42 Hct 38.8 % (30.3-42.9) 05/05/21 13:42 MCV 88 fl (79-97) 05/05/21 13:42 MCH 29 pg (28-32) 05/05/21 13:42 MCHC 33 % (30-34) 05/05/21 13:42 RDW 15.6 % (13.2-15.2) H 05/05/21 13:42 Plt Count 296 K/mm3 (140-440) 05/05/21 13:42 Lymph % (Auto) 23.3 % (13.4-35.0) 05/05/21 13:42 [place] % (Auto) 6.1 % (0.0-7.3) 05/05/21 13:42 Eos % (Auto) 0.7 % (0.0-4.3) 05/05/21 13:42 Baso % (Auto) 1.2 % (0.0-1.8) 05/05/21 13:42 Lymph # (Auto) 1.0 K/mm3 (1.2-5.4) L 05/05/21 13:42 [place] # (Auto) 0.3 K/mm3 (0.0-0.8) 05/05/21 13:42 Eos # (Auto) 0.0 K/mm3 (0.0-0.4) 05/05/21 13:42 Baso # (Auto) 0.1 K/mm3 (0.0-0.1) 05/05/21 13:42 Seg Neutrophils % 68.7 % (40.0-70.0) 05/05/21 13:42 Seg Neutrophils # 3.1 K/mm3 (1.8-7.7) 05/05/21 13:42 PT 13.6 Sec. (12.2-14.9) 05/02/21 12:19 INR 0.99 (0.87-1.13) 05/02/21 12:19 APTT 25.8 Sec. (24.2-36.6) 05/02/21 12:19 D-Dimer 665.29 ng/mlDDU (0-234) H 05/05/21 13:42 Sodium 143 mmol/L (137-145) 05/07/21 06:58 Potassium 4.4 mmol/L (3.6-5.0) D 05/07/21 06:58 Chloride 107.7 mmol/L (98-107) H 05/07/21 06:58 Carbon Dioxide 26 mmol/L (22-30) 05/07/21 06:58 Anion Gap 14 mmol/L 05/07/21 06:58 BUN 11 mg/dL (7-17) 05/07/21 06:58 Creatinine 0.6 mg/dL (0.6-1.2) 05/07/21 06:58 Estimated GFR > 60 ml/min 05/07/21 06:58 BUN/Creatinine Ratio 18 % 05/07/21 06:58 Glucose 119 mg/dL (65-100) H 05/07/21 06:58 POC Glucose 90 mg/dL (70-105) 05/11/21 12:48 Lactic Acid 1.10 mmol/L (0.7-2.0) 05/02/21 12:19 Calcium 8.8 mg/dL (8.4-10.2) 05/07/21 06:58 Ferritin 913.0 ng/mL (10.0-200.0) H 05/05/21 13:42 Total Bilirubin 0.30 mg/dL (0.1-1.2) 05/02/21 12:04 AST 77 units/L (5-40) H 05/02/21 12:04 ALT 30 units/L (7-56) 05/02/21 12:04 Alkaline Phosphatase 48 units/L (35-129) 05/02/21 12:04 Ammonia 33.0 umol/L (25-60) 05/02/21 12:19 Lactate Dehydrogenase 317 units/L (91-180) H 05/05/21 13:42 Troponin T 0.030 ng/mL (0.00-0.029) H 05/02/21 19:22 C-Reactive Protein 5.10 mg/dL (0.00-1.30) H 05/05/21 13:42 NT-Pro-B Natriuret Pep 243.4 pg/mL (0-900) 05/02/21 12:04 Total Protein 6.8 g/dL (6.3-8.2) 05/02/21 12:04 Albumin 3.3 g/dL (3.9-5) L 05/02/21 12:04 Albumin/Globulin Ratio 0.9 % 05/02/21 12:04 Triglycerides 140 mg/dL (2-149) 05/02/21 12:04 Cholesterol 169 mg/dL (50-199) 05/02/21 12:04 LDL Cholesterol Direct 98 mg/dL (50-130) 05/02/21 12:04 HDL Cholesterol 47 mg/dL (40-59) 05/02/21 12:04 Cholesterol/HDL Ratio 3.59 % 05/02/21 12:04 Procalcitonin 0.11 ng/mL (<0.15) 05/05/21 13:42 Urine Color Yellow (Yellow) 05/02/21 Unknown Urine Turbidity Clear (Clear) 05/02/21 Unknown Urine pH 7.0 (5.0-7.0) 05/02/21 Unknown Ur Specific [place] 1.014 (1.003-1.030) 05/02/21 Unknown Urine Protein 100 mg/dl mg/dL (Negative) 05/02/21 Unknown Urine Glucose (UA) Neg mg/dL (Negative) 05/02/21 Unknown Urine Ketones Neg mg/dL (Negative) 05/02/21 Unknown Urine Blood Mod (Negative) 05/02/21 Unknown Urine Nitrite Neg (Negative) 05/02/21 Unknown Urine Bilirubin Neg (Negative) 05/02/21 Unknown Urine Urobilinogen 2.0 mg/dL (<2.0) 05/02/21 Unknown Ur Leukocyte Esterase Sm (Negative) 05/02/21 Unknown Urine WBC (Auto) 5.0 /HPF (0.0-6.0) 05/02/21 Unknown Urine RBC (Auto) 3.0 /HPF (0.0-6.0) 05/02/21 Unknown U Epithel Cells (Auto) 2.0 /HPF (0-13.0) 05/02/21 Unknown Urine Mucus Few /HPF 05/02/21 Unknown Salicylates < 0.3 mg/dL (2.8-20.0) L 05/02/21 12:04 Urine Opiates Screen Negative 05/02/21 Unknown Urine Methadone Screen Negative 05/02/21 Unknown Acetaminophen 5.0 ug/mL (10.0-30.0) L 05/02/21 12:04 Ur Barbiturates Screen Negative 05/02/21 Unknown Ur Phencyclidine Scrn Negative 05/02/21 Unknown Ur Amphetamines Screen Negative 05/02/21 Unknown U Benzodiazepines Scrn Negative 05/02/21 Unknown Urine Cocaine Screen Negative 05/02/21 Unknown U Marijuana (THC) Screen Negative 05/02/21 Unknown Drugs of Abuse Note Disclamer 05/02/21 Unknown Plasma/Serum Alcohol < 0.01 % (0-0.07) 05/02/21 12:04 Coronavirus (PCR) Positive (Negative) A 05/06/21 09:00 HIV 1&2 Antibody Rapid Reactive (Non React) 05/08/21 08:12 HIV P24 Antigen Non react (Non React) 05/08/21 08:12 Dennis/IV: Voiding Method Incontinent Active Medications - Current Medications Current Medications: Generic Name Dose Route Start Last Admin Trade Name Freq PRN Reason Stop Dose Admin Acetaminophen 650 mg 05/05/21 22:39 Acetaminophen 325 Mg Tab PO Q4H PRN Pain MILD(1-3)/Fever >100.5/DEVLIN Dexamethasone 6 mg 05/08/21 12:00 05/11/21 10:28 Dexamethasone 4 Mg Tab PO 05/14/21 10:01 6 mg DAILY DIANNE Administration Enoxaparin Sodium 40 mg 05/08/21 10:00 05/11/21 10:28 Enoxaparin 40 Mg/0.4 Ml Inj SUB-Q 40 mg QDAY@1000 DIANNE Administration Famotidine 20 mg 05/06/21 10:00 05/11/21 22:46 Famotidine 20 Mg Tab PO 20 mg BID DIANNE Administration Hydromorphone HCl 0.5 mg 05/05/21 22:45 Hydromorphone 1 Mg/1 Ml Inj IV Q3H PRN Pain , Severe (7-10) Ondansetron HCl 4 mg 05/05/21 22:39 Ondansetron 4 Mg/2 Ml Inj IV Q8H PRN Nausea And Vomiting Oxycodone/Acetaminophen 1 tab 05/05/21 22:45 Oxycodone /Acetaminophen 5-325mg Tab PO Q6H PRN Pain, Moderate (4-6) Sodium Chloride 10 ml 05/06/21 10:00 05/11/21 22:46 Sodium Chloride 0.9% 10 Ml Flush Syringe IV 10 ml BID DIANNE Administration Sodium Chloride 10 ml 05/05/21 22:39 Sodium Chloride 0.9% 10 Ml Flush Syringe IV PRN PRN LINE FLUSH Sodium Chloride 10 ml 05/06/21 10:00 05/11/21 22:52 Sodium Chloride 0.9% 10 Ml Flush Syringe IV Not Given BID [facility] Nutrition/Malnutrition Assess - Dietary Evaluation Nutrition/Malnutrition Findings: Nutrition Notes Start: 05/08/21 12:06 Freq: Status: Active Protocol: Document 05/10/21 08:50 (Rec: 05/10/21 09:05 [email or web address]) Nutrition Notes Need for Assessment generated from: Low BMI Initial or Follow up Brief Note Current Diet Cardiac, Pureed Diet Height 5 ft 9 in Weight 49.89 kg [place] Body Weight (kg) 65.90 BMI 16.2 Subjective/Other Information Pt has low BMI, f/u for intakes and ONS. Pt's intake is currently 100% and diet tolerated per ADL assessment #1 Diagnosis Progress(for reassessment Continues documentation) Nutrition Intervention Goal #1 PO intake of meals plus ONS to meet 100% energy and pro needs Goal #2 Wt maintenance and/or gain Anticipated Discharge Needs: Continue ONS 2-3 times daily for wt maintenance Follow-Up By: 05/12/21 Additional Comments F/U: intakes
[2021-05-12] MEDS: FAMOTIDINE 20 MG TAB PO SCH ×2 (10:19→21:35)
[2021-05-12] MEDS: DEXAMETHASONE 4 MG TAB PO SCH (10:19)
[2021-05-12] MEDS: ENOXAPARIN 40 MG/0.4 ML INJ SUB-Q SCH (10:19)
--- NOTE | 2021-05-13 07:54 | Progress Note ---
Assessment and Plan Assessment and plan: 56 old [id number] female with history of stroke, admitted due to altered mental status. Patient tested positive for COVID-19 on 05/03/2021: COVID-19 infection Sepsis. Patient meets criteria given the tachycardia, altered mentation and COVID-19 infection Acute hypoxic respiratory failure Hypernatremia Transaminitis Toxic metabolic encephalopathy HIV screening test positive 05/09/2021. Physical therapy recommends SNF and awaiting placement per case management. Patient with positive Covid test 05/03 and 05/06. Follow-up HIV RNA PCR and CD4 count. Continue dexamethasone 6 mg IV for total of 10 days. No indication for remdesivir as patient is on room air. Continue to monitor inflammatory markers. Continue anticoagulation per protocol. 05/10/2021. Await SNF placement. However, patient with positive Covid test 05/03 and 05/06. Follow-up HIV RNA PCR and CD4 count. Continue dexamethasone 6 mg IV for total of 10 days. No indication for remdesivir as patient is on room air. Continue to monitor inflammatory markers. Continue anticoagulation per protocol. 05/11/2021. No new issues. Await SNF placement. However, patient with positive Covid test 05/03 and 05/06. Follow-up HIV RNA PCR and CD4 count. Continue dexamethasone 6 mg IV for total of 10 days. No indication for remdesivir as patient is on room air. Continue to monitor inflammatory markers. Continue anticoagulation per protocol. 05/12/21. No new issues. Await SNF placement. However, patient with positive Covid test 05/03 and 05/06. Follow-up HIV RNA PCR and CD4 count. Continue dexamethasone 6 mg IV for total of 10 days. No indication for remdesivir as patient is on room air. Continue to monitor inflammatory markers. Continue anticoagulation per protocol. reports Ketty Garcia @ [facility] states she thinks she will be able to approve Subacute for [place]. Authorization pending. 05/13/2021. Await authorization for SNF placement. Case management following. Continue dexamethasone. Continue to monitor inflammatory markers. Continue anticoagulation per protocol. History Interval history: No new issues Hospitalist Physical - Constitutional Vitals: Temp Pulse Resp BP Pulse Ox 98.2 F 79 18 157/84 94 05/13/21 03:56 05/13/21 03:56 05/13/21 03:56 05/13/21 03:56 05/13/21 03:56 General appearance: Present: no acute distress - EENT Eyes: Present: PERRL, EOM intact ENT: hearing intact, clear oral mucosa, dentition normal - Neck Neck: Present: supple, normal ROM - Respiratory Respiratory effort: normal Respiratory: bilateral: CTA - Cardiovascular Rhythm: regular Heart Sounds: Present: S1 & S2. Absent: gallop, rub - Extremities Extremities: no ischemia, No edema, Full ROM - Abdominal General gastrointestinal: soft, non-tender, non-distended, normal bowel sounds - Integumentary Integumentary: Present: clear, warm, dry - Neurologic Neurologic: CNII-XII intact, moves all extremities HEART Score - HEART Score Troponin: Troponin T 0.030 ng/mL (0.00-0.029) H 05/02/21 19:22 Results - Labs CBC & Chem 7: 05/05/21 13:42 05/07/21 06:58 Labs: Laboratory Last Values WBC 4.5 K/mm3 (4.5-11.0) 05/05/21 13:42 RBC 4.42 M/mm3 (3.65-5.03) 05/05/21 13:42 Hgb 12.8 gm/dl (10.1-14.3) 05/05/21 13:42 Hct 38.8 % (30.3-42.9) 05/05/21 13:42 MCV 88 fl (79-97) 05/05/21 13:42 MCH 29 pg (28-32) 05/05/21 13:42 MCHC 33 % (30-34) 05/05/21 13:42 RDW 15.6 % (13.2-15.2) H 05/05/21 13:42 Plt Count 296 K/mm3 (140-440) 05/05/21 13:42 Lymph % (Auto) 23.3 % (13.4-35.0) 05/05/21 13:42 [place] % (Auto) 6.1 % (0.0-7.3) 05/05/21 13:42 Eos % (Auto) 0.7 % (0.0-4.3) 05/05/21 13:42 Baso % (Auto) 1.2 % (0.0-1.8) 05/05/21 13:42 Lymph # (Auto) 1.0 K/mm3 (1.2-5.4) L 05/05/21 13:42 [place] # (Auto) 0.3 K/mm3 (0.0-0.8) 05/05/21 13:42 Eos # (Auto) 0.0 K/mm3 (0.0-0.4) 05/05/21 13:42 Baso # (Auto) 0.1 K/mm3 (0.0-0.1) 05/05/21 13:42 Seg Neutrophils % 68.7 % (40.0-70.0) 05/05/21 13:42 Seg Neutrophils # 3.1 K/mm3 (1.8-7.7) 05/05/21 13:42 PT 13.6 Sec. (12.2-14.9) 05/02/21 12:19 INR 0.99 (0.87-1.13) 05/02/21 12:19 APTT 25.8 Sec. (24.2-36.6) 05/02/21 12:19 D-Dimer 665.29 ng/mlDDU (0-234) H 05/05/21 13:42 Sodium 143 mmol/L (137-145) 05/07/21 06:58 Potassium 4.4 mmol/L (3.6-5.0) D 05/07/21 06:58 Chloride 107.7 mmol/L (98-107) H 05/07/21 06:58 Carbon Dioxide 26 mmol/L (22-30) 05/07/21 06:58 Anion Gap 14 mmol/L 05/07/21 06:58 BUN 11 mg/dL (7-17) 05/07/21 06:58 Creatinine 0.6 mg/dL (0.6-1.2) 05/07/21 06:58 Estimated GFR > 60 ml/min 05/07/21 06:58 BUN/Creatinine Ratio 18 % 05/07/21 06:58 Glucose 119 mg/dL (65-100) H 05/07/21 06:58 POC Glucose 62 mg/dL (70-105) L 05/13/21 07:30 Lactic Acid 1.10 mmol/L (0.7-2.0) 05/02/21 12:19 Calcium 8.8 mg/dL (8.4-10.2) 05/07/21 06:58 Ferritin 913.0 ng/mL (10.0-200.0) H 05/05/21 13:42 Total Bilirubin 0.30 mg/dL (0.1-1.2) 05/02/21 12:04 AST 77 units/L (5-40) H 05/02/21 12:04 ALT 30 units/L (7-56) 05/02/21 12:04 Alkaline Phosphatase 48 units/L (35-129) 05/02/21 12:04 Ammonia 33.0 umol/L (25-60) 05/02/21 12:19 Lactate Dehydrogenase 317 units/L (91-180) H 05/05/21 13:42 Troponin T 0.030 ng/mL (0.00-0.029) H 05/02/21 19:22 C-Reactive Protein 5.10 mg/dL (0.00-1.30) H 05/05/21 13:42 NT-Pro-B Natriuret Pep 243.4 pg/mL (0-900) 05/02/21 12:04 Total Protein 6.8 g/dL (6.3-8.2) 05/02/21 12:04 Albumin 3.3 g/dL (3.9-5) L 05/02/21 12:04 Albumin/Globulin Ratio 0.9 % 05/02/21 12:04 Triglycerides 140 mg/dL (2-149) 05/02/21 12:04 Cholesterol 169 mg/dL (50-199) 05/02/21 12:04 LDL Cholesterol Direct 98 mg/dL (50-130) 05/02/21 12:04 HDL Cholesterol 47 mg/dL (40-59) 05/02/21 12:04 Cholesterol/HDL Ratio 3.59 % 05/02/21 12:04 Procalcitonin 0.11 ng/mL (<0.15) 05/05/21 13:42 Urine Color Yellow (Yellow) 05/02/21 Unknown Urine Turbidity Clear (Clear) 05/02/21 Unknown Urine pH 7.0 (5.0-7.0) 05/02/21 Unknown Ur Specific [place] 1.014 (1.003-1.030) 05/02/21 Unknown Urine Protein 100 mg/dl mg/dL (Negative) 05/02/21 Unknown Urine Glucose (UA) Neg mg/dL (Negative) 05/02/21 Unknown Urine Ketones Neg mg/dL (Negative) 05/02/21 Unknown Urine Blood Mod (Negative) 05/02/21 Unknown Urine Nitrite Neg (Negative) 05/02/21 Unknown Urine Bilirubin Neg (Negative) 05/02/21 Unknown Urine Urobilinogen 2.0 mg/dL (<2.0) 05/02/21 Unknown Ur Leukocyte Esterase Sm (Negative) 05/02/21 Unknown Urine WBC (Auto) 5.0 /HPF (0.0-6.0) 05/02/21 Unknown Urine RBC (Auto) 3.0 /HPF (0.0-6.0) 05/02/21 Unknown U Epithel Cells (Auto) 2.0 /HPF (0-13.0) 05/02/21 Unknown Urine Mucus Few /HPF 05/02/21 Unknown Salicylates < 0.3 mg/dL (2.8-20.0) L 05/02/21 12:04 Urine Opiates Screen Negative 05/02/21 Unknown Urine Methadone Screen Negative 05/02/21 Unknown Acetaminophen 5.0 ug/mL (10.0-30.0) L 05/02/21 12:04 Ur Barbiturates Screen Negative 05/02/21 Unknown Ur Phencyclidine Scrn Negative 05/02/21 Unknown Ur Amphetamines Screen Negative 05/02/21 Unknown U Benzodiazepines Scrn Negative 05/02/21 Unknown Urine Cocaine Screen Negative 05/02/21 Unknown U Marijuana (THC) Screen Negative 05/02/21 Unknown Drugs of Abuse Note Disclamer 05/02/21 Unknown Plasma/Serum Alcohol < 0.01 % (0-0.07) 05/02/21 12:04 Coronavirus (PCR) Positive (Negative) A 05/06/21 09:00 HIV 1&2 Antibody Rapid Reactive (Non React) 05/08/21 08:12 HIV P24 Antigen Non react (Non React) 05/08/21 08:12 Dennis/IV: Voiding Method Incontinent Active Medications - Current Medications Current Medications: Generic Name Dose Route Start Last Admin Trade Name Freq PRN Reason Stop Dose Admin Acetaminophen 650 mg 05/05/21 22:39 Acetaminophen 325 Mg Tab PO Q4H PRN Pain MILD(1-3)/Fever >100.5/DEVLIN Dexamethasone 6 mg 05/08/21 12:00 05/12/21 10:19 Dexamethasone 4 Mg Tab PO 05/14/21 10:01 6 mg DAILY DIANNE Administration Enoxaparin Sodium 40 mg 05/08/21 10:00 05/12/21 10:19 Enoxaparin 40 Mg/0.4 Ml Inj SUB-Q 40 mg QDAY@1000 DIANNE Administration Famotidine 20 mg 05/06/21 10:00 05/12/21 21:35 Famotidine 20 Mg Tab PO 20 mg BID DIANNE Administration Hydromorphone HCl 0.5 mg 05/05/21 22:45 Hydromorphone 1 Mg/1 Ml Inj IV Q3H PRN Pain , Severe (7-10) Ondansetron HCl 4 mg 05/05/21 22:39 Ondansetron 4 Mg/2 Ml Inj IV Q8H PRN Nausea And Vomiting Oxycodone/Acetaminophen 1 tab 05/05/21 22:45 Oxycodone /Acetaminophen 5-325mg Tab PO Q6H PRN Pain, Moderate (4-6) Sodium Chloride 10 ml 05/06/21 10:00 05/12/21 21:35 Sodium Chloride 0.9% 10 Ml Flush Syringe IV 10 ml BID DIANNE Administration Sodium Chloride 10 ml 05/05/21 22:39 Sodium Chloride 0.9% 10 Ml Flush Syringe IV PRN PRN LINE FLUSH Nutrition/Malnutrition Assess - Dietary Evaluation Nutrition/Malnutrition Findings: Nutrition Notes Start: 05/08/21 12:06 Freq: Status: Active Protocol: Document 05/12/21 10:22 (Rec: 05/12/21 10:27 [id number]) Nutrition Notes Initial or Follow up Brief Note Current Diet Cardiac, Pureed with [place] liquids Height 5 ft 8.9 in Weight 49.89 kg [place] Body Weight (kg) 65.68 BMI 16.2 Subjective/Other Information Unable to reach pt manager decision support or Nurse tech via phone x3 at [phone]. Per Nurse notes, pt appetite is good and pt consuming 75-100% of meals when he is ortiented to the food in front of him. #1 Nutrition Diagnosis Malnutrition Diagnosis Progress(for reassessment Continues documentation) Nutrition Intervention Goal #1 PO intake of meals plus ONS to meet 100% energy and pro needs Goal #2 Wt maintenance and/or gain Follow-Up By: 05/13/21 Additional Comments F/U: intakes
[2021-05-13] MEDS: ENOXAPARIN 40 MG/0.4 ML INJ SUB-Q SCH (10:10)
[2021-05-13] MEDS: DEXAMETHASONE 4 MG TAB PO SCH (10:10)
[2021-05-13] MEDS: FAMOTIDINE 20 MG TAB PO SCH ×2 (10:11→22:23)
--- NOTE | 2021-05-14 08:40 | Progress Note ---
Assessment and Plan Assessment and plan: 56 old [id number] female with history of stroke, admitted due to altered mental status. Patient tested positive for COVID-19 on 05/03/2021: COVID-19 infection Sepsis. Patient meets criteria given the tachycardia, altered mentation and COVID-19 infection Acute hypoxic respiratory failure Hypernatremia Transaminitis Toxic metabolic encephalopathy HIV screening test positive 05/09/2021. Physical therapy recommends SNF and awaiting placement per case management. Patient with positive Covid test 05/03 and 05/06. Follow-up HIV RNA PCR and CD4 count. Continue dexamethasone 6 mg IV for total of 10 days. No indication for remdesivir as patient is on room air. Continue to monitor inflammatory markers. Continue anticoagulation per protocol. 05/10/2021. Await SNF placement. However, patient with positive Covid test 05/03 and 05/06. Follow-up HIV RNA PCR and CD4 count. Continue dexamethasone 6 mg IV for total of 10 days. No indication for remdesivir as patient is on room air. Continue to monitor inflammatory markers. Continue anticoagulation per protocol. 05/11/2021. No new issues. Await SNF placement. However, patient with positive Covid test 05/03 and 05/06. Follow-up HIV RNA PCR and CD4 count. Continue dexamethasone 6 mg IV for total of 10 days. No indication for remdesivir as patient is on room air. Continue to monitor inflammatory markers. Continue anticoagulation per protocol. 05/12/21. No new issues. Await SNF placement. However, patient with positive Covid test 05/03 and 05/06. Follow-up HIV RNA PCR and CD4 count. Continue dexamethasone 6 mg IV for total of 10 days. No indication for remdesivir as patient is on room air. Continue to monitor inflammatory markers. Continue anticoagulation per protocol. reports Ketty Iveyz @ [facility] states she thinks she will be able to approve Subacute for [place]. Authorization pending. 05/13/2021. Await authorization for SNF placement. Case management following. Continue dexamethasone. Continue to monitor inflammatory markers. Continue anticoagulation per protocol. 05/14/2021. Await authorization for SNF placement. Case management following. Continue dexamethasone. Continue to monitor inflammatory markers. Continue anticoagulation per protocol. History Interval history: No new issues Hospitalist Physical - Constitutional Vitals: Temp Pulse Resp BP Pulse Ox 98.2 F 68 18 139/87 100 05/14/21 03:54 05/14/21 03:54 05/14/21 03:54 05/14/21 03:54 05/14/21 03:54 General appearance: Present: no acute distress - EENT Eyes: Present: PERRL, EOM intact ENT: hearing intact, clear oral mucosa, dentition normal - Neck Neck: Present: supple, normal ROM - Respiratory Respiratory effort: normal Respiratory: bilateral: CTA - Cardiovascular Rhythm: regular Heart Sounds: Present: S1 & S2. Absent: gallop, rub - Extremities Extremities: no ischemia, No edema, Full ROM - Abdominal General gastrointestinal: soft, non-tender, non-distended, normal bowel sounds - Integumentary Integumentary: Present: clear, warm, dry - Neurologic Neurologic: CNII-XII intact, moves all extremities HEART Score - HEART Score Troponin: Troponin T 0.030 ng/mL (0.00-0.029) H 05/02/21 19:22 Results - Labs CBC & Chem 7: 05/05/21 13:42 05/07/21 06:58 Labs: Laboratory Last Values WBC 4.5 K/mm3 (4.5-11.0) 05/05/21 13:42 RBC 4.42 M/mm3 (3.65-5.03) 05/05/21 13:42 Hgb 12.8 gm/dl (10.1-14.3) 05/05/21 13:42 Hct 38.8 % (30.3-42.9) 05/05/21 13:42 MCV 88 fl (79-97) 05/05/21 13:42 MCH 29 pg (28-32) 05/05/21 13:42 MCHC 33 % (30-34) 05/05/21 13:42 RDW 15.6 % (13.2-15.2) H 05/05/21 13:42 Plt Count 296 K/mm3 (140-440) 05/05/21 13:42 Lymph % (Auto) 23.3 % (13.4-35.0) 05/05/21 13:42 [place] % (Auto) 6.1 % (0.0-7.3) 05/05/21 13:42 Eos % (Auto) 0.7 % (0.0-4.3) 05/05/21 13:42 Baso % (Auto) 1.2 % (0.0-1.8) 05/05/21 13:42 Lymph # (Auto) 1.0 K/mm3 (1.2-5.4) L 05/05/21 13:42 [place] # (Auto) 0.3 K/mm3 (0.0-0.8) 05/05/21 13:42 Eos # (Auto) 0.0 K/mm3 (0.0-0.4) 05/05/21 13:42 Baso # (Auto) 0.1 K/mm3 (0.0-0.1) 05/05/21 13:42 Seg Neutrophils % 68.7 % (40.0-70.0) 05/05/21 13:42 Seg Neutrophils # 3.1 K/mm3 (1.8-7.7) 05/05/21 13:42 PT 13.6 Sec. (12.2-14.9) 05/02/21 12:19 INR 0.99 (0.87-1.13) 05/02/21 12:19 APTT 25.8 Sec. (24.2-36.6) 05/02/21 12:19 D-Dimer 665.29 ng/mlDDU (0-234) H 05/05/21 13:42 Sodium 143 mmol/L (137-145) 05/07/21 06:58 Potassium 4.4 mmol/L (3.6-5.0) D 05/07/21 06:58 Chloride 107.7 mmol/L (98-107) H 05/07/21 06:58 Carbon Dioxide 26 mmol/L (22-30) 05/07/21 06:58 Anion Gap 14 mmol/L 05/07/21 06:58 BUN 11 mg/dL (7-17) 05/07/21 06:58 Creatinine 0.6 mg/dL (0.6-1.2) 05/07/21 06:58 Estimated GFR > 60 ml/min 05/07/21 06:58 BUN/Creatinine Ratio 18 % 05/07/21 06:58 Glucose 119 mg/dL (65-100) H 05/07/21 06:58 POC Glucose 68 mg/dL (70-105) L 05/14/21 07:36 Lactic Acid 1.10 mmol/L (0.7-2.0) 05/02/21 12:19 Calcium 8.8 mg/dL (8.4-10.2) 05/07/21 06:58 Ferritin 913.0 ng/mL (10.0-200.0) H 05/05/21 13:42 Total Bilirubin 0.30 mg/dL (0.1-1.2) 05/02/21 12:04 AST 77 units/L (5-40) H 05/02/21 12:04 ALT 30 units/L (7-56) 05/02/21 12:04 Alkaline Phosphatase 48 units/L (35-129) 05/02/21 12:04 Ammonia 33.0 umol/L (25-60) 05/02/21 12:19 Lactate Dehydrogenase 317 units/L (91-180) H 05/05/21 13:42 Troponin T 0.030 ng/mL (0.00-0.029) H 05/02/21 19:22 C-Reactive Protein 5.10 mg/dL (0.00-1.30) H 05/05/21 13:42 NT-Pro-B Natriuret Pep 243.4 pg/mL (0-900) 05/02/21 12:04 Total Protein 6.8 g/dL (6.3-8.2) 05/02/21 12:04 Albumin 3.3 g/dL (3.9-5) L 05/02/21 12:04 Albumin/Globulin Ratio 0.9 % 05/02/21 12:04 Triglycerides 140 mg/dL (2-149) 05/02/21 12:04 Cholesterol 169 mg/dL (50-199) 05/02/21 12:04 LDL Cholesterol Direct 98 mg/dL (50-130) 05/02/21 12:04 HDL Cholesterol 47 mg/dL (40-59) 05/02/21 12:04 Cholesterol/HDL Ratio 3.59 % 05/02/21 12:04 Procalcitonin 0.11 ng/mL (<0.15) 05/05/21 13:42 Urine Color Yellow (Yellow) 05/02/21 Unknown Urine Turbidity Clear (Clear) 05/02/21 Unknown Urine pH 7.0 (5.0-7.0) 05/02/21 Unknown Ur Specific [place] 1.014 (1.003-1.030) 05/02/21 Unknown Urine Protein 100 mg/dl mg/dL (Negative) 05/02/21 Unknown Urine Glucose (UA) Neg mg/dL (Negative) 05/02/21 Unknown Urine Ketones Neg mg/dL (Negative) 05/02/21 Unknown Urine Blood Mod (Negative) 05/02/21 Unknown Urine Nitrite Neg (Negative) 05/02/21 Unknown Urine Bilirubin Neg (Negative) 05/02/21 Unknown Urine Urobilinogen 2.0 mg/dL (<2.0) 05/02/21 Unknown Ur Leukocyte Esterase Sm (Negative) 05/02/21 Unknown Urine WBC (Auto) 5.0 /HPF (0.0-6.0) 05/02/21 Unknown Urine RBC (Auto) 3.0 /HPF (0.0-6.0) 05/02/21 Unknown U Epithel Cells (Auto) 2.0 /HPF (0-13.0) 05/02/21 Unknown Urine Mucus Few /HPF 05/02/21 Unknown Salicylates < 0.3 mg/dL (2.8-20.0) L 05/02/21 12:04 Urine Opiates Screen Negative 05/02/21 Unknown Urine Methadone Screen Negative 05/02/21 Unknown Acetaminophen 5.0 ug/mL (10.0-30.0) L 05/02/21 12:04 Ur Barbiturates Screen Negative 05/02/21 Unknown Ur Phencyclidine Scrn Negative 05/02/21 Unknown Ur Amphetamines Screen Negative 05/02/21 Unknown U Benzodiazepines Scrn Negative 05/02/21 Unknown Urine Cocaine Screen Negative 05/02/21 Unknown U Marijuana (THC) Screen Negative 05/02/21 Unknown Drugs of Abuse Note Disclamer 05/02/21 Unknown Plasma/Serum Alcohol < 0.01 % (0-0.07) 05/02/21 12:04 Coronavirus (PCR) Positive (Negative) A 05/06/21 09:00 HIV 1&2 Antibody Rapid Reactive (Non React) 05/08/21 08:12 HIV P24 Antigen Non react (Non React) 05/08/21 08:12 Dennis/IV: Voiding Method Incontinent Active Medications - Current Medications Current Medications: Generic Name Dose Route Start Last Admin Trade Name Freq PRN Reason Stop Dose Admin Acetaminophen 650 mg 05/05/21 22:39 Acetaminophen 325 Mg Tab PO Q4H PRN Pain MILD(1-3)/Fever >100.5/DEVLIN Dexamethasone 6 mg 05/08/21 12:00 05/13/21 10:10 Dexamethasone 4 Mg Tab PO 05/14/21 10:01 6 mg DAILY DIANNE Administration Enoxaparin Sodium 40 mg 05/08/21 10:00 05/13/21 10:10 Enoxaparin 40 Mg/0.4 Ml Inj SUB-Q 40 mg QDAY@1000 DIANNE Administration Famotidine 20 mg 05/06/21 10:00 05/13/21 22:23 Famotidine 20 Mg Tab PO 20 mg BID DIANNE Administration Hydromorphone HCl 0.5 mg 05/05/21 22:45 Hydromorphone 1 Mg/1 Ml Inj IV Q3H PRN Pain , Severe (7-10) Ondansetron HCl 4 mg 05/05/21 22:39 Ondansetron 4 Mg/2 Ml Inj IV Q8H PRN Nausea And Vomiting Oxycodone/Acetaminophen 1 tab 05/05/21 22:45 Oxycodone /Acetaminophen 5-325mg Tab PO Q6H PRN Pain, Moderate (4-6) Sodium Chloride 10 ml 05/06/21 10:00 05/13/21 22:24 Sodium Chloride 0.9% 10 Ml Flush Syringe IV 10 ml BID DIANNE Administration Sodium Chloride 10 ml 05/05/21 22:39 Sodium Chloride 0.9% 10 Ml Flush Syringe IV PRN PRN LINE FLUSH Nutrition/Malnutrition Assess - Dietary Evaluation Nutrition/Malnutrition Findings: Nutrition Notes Start: 05/08/21 12:06 Freq: Status: Active Protocol: Document 05/12/21 10:22 EB (Rec: 05/12/21 10:27 [id number]) Nutrition Notes Initial or Follow up Brief Note Current Diet Cardiac, Pureed with [place] liquids Height 5 ft 8.9 in Weight 49.89 kg [place] Body Weight (kg) 65.68 BMI 16.2 Subjective/Other Information Unable to reach pt sister superior or Nurse tech via phone x3 at 1026. Per Nurse notes, pt appetite is good and pt consuming 75-100% of meals when he is ortiented to the food in front of him. #1 Nutrition Diagnosis Malnutrition Diagnosis Progress(for reassessment Continues documentation) Nutrition Intervention Goal #1 PO intake of meals plus ONS to meet 100% energy and pro needs Goal #2 Wt maintenance and/or gain Follow-Up By: 05/13/21 Additional Comments F/U: intakes
[2021-05-14] MEDS: ENOXAPARIN 40 MG/0.4 ML INJ SUB-Q SCH (09:35)
[2021-05-14] MEDS: DEXAMETHASONE 4 MG TAB PO SCH (09:35)
[2021-05-14] MEDS: FAMOTIDINE 20 MG TAB PO SCH ×2 (09:35→22:56)
--- NOTE | 2021-05-15 08:18 | Progress Note ---
Assessment and Plan Assessment and plan: 56 old [id number] female with history of stroke, admitted due to altered mental status. Patient tested positive for COVID-19 on 05/03/2021: COVID-19 infection Sepsis. Patient meets criteria given the tachycardia, altered mentation and COVID-19 infection Acute hypoxic respiratory failure Hypernatremia Transaminitis Toxic metabolic encephalopathy HIV screening test positive 05/09/2021. Physical therapy recommends SNF and awaiting placement per case management. Patient with positive Covid test 05/03 and 05/06. Follow-up HIV RNA PCR and CD4 count. Continue dexamethasone 6 mg IV for total of 10 days. No indication for remdesivir as patient is on room air. Continue to monitor inflammatory markers. Continue anticoagulation per protocol. 05/10/2021. Await SNF placement. However, patient with positive Covid test 05/03 and 05/06. Follow-up HIV RNA PCR and CD4 count. Continue dexamethasone 6 mg IV for total of 10 days. No indication for remdesivir as patient is on room air. Continue to monitor inflammatory markers. Continue anticoagulation per protocol. 05/11/2021. No new issues. Await SNF placement. However, patient with positive Covid test 05/03 and 05/06. Follow-up HIV RNA PCR and CD4 count. Continue dexamethasone 6 mg IV for total of 10 days. No indication for remdesivir as patient is on room air. Continue to monitor inflammatory markers. Continue anticoagulation per protocol. 05/12/21. No new issues. Await SNF placement. However, patient with positive Covid test 05/03 and 05/06. Follow-up HIV RNA PCR and CD4 count. Continue dexamethasone 6 mg IV for total of 10 days. No indication for remdesivir as patient is on room air. Continue to monitor inflammatory markers. Continue anticoagulation per protocol. reports Ketty Iveyz @ [facility] states she thinks she will be able to approve Subacute for [place]. Authorization pending. 05/13/2021. Await authorization for SNF placement. Case management following. Continue dexamethasone. Continue to monitor inflammatory markers. Continue anticoagulation per protocol. 05/14/2021. Await authorization for SNF placement. Case management following. Continue dexamethasone. Continue to monitor inflammatory markers. Continue anticoagulation per protocol. 05/15/2021. Await authorization for SNF placement. Case management following. Completed dexamethasone. Continue to monitor inflammatory markers. Continue anticoagulation per protocol. Follow-up HIV RNA PCR, CD4 count. Patient will need to follow-up in ID clinic 2-3 weeks for HIV RNA PCR and CD4 results. Labs ordered for today. Follow-up CBC, BMP and ammonia level. Unsure of patient's baseline mental status. ER record reports patient with previous CVA and nonverbal. Will attempt to contact family and discuss with case management prior to discharge. History Interval history: No new issues Hospitalist Physical - Constitutional Vitals: Temp Pulse Resp BP Pulse Ox 97.6 F 82 18 134/80 96 05/15/21 05:00 05/15/21 05:00 05/15/21 05:00 05/15/21 05:00 05/15/21 05:00 General appearance: Present: no acute distress - EENT Eyes: Present: PERRL, EOM intact ENT: hearing intact, clear oral mucosa, dentition normal - Neck Neck: Present: supple, normal ROM - Respiratory Respiratory effort: normal Respiratory: bilateral: CTA - Cardiovascular Rhythm: regular Heart Sounds: Present: S1 & S2. Absent: gallop, rub - Extremities Extremities: no ischemia, No edema, Full ROM - Abdominal General gastrointestinal: soft, non-tender, non-distended, normal bowel sounds - Integumentary Integumentary: Present: clear, warm, dry - Neurologic Neurologic: CNII-XII intact, moves all extremities HEART Score - HEART Score Troponin: Troponin T 0.030 ng/mL (0.00-0.029) H 05/02/21 19:22 Results - Labs CBC & Chem 7: 05/05/21 13:42 05/07/21 06:58 Labs: Laboratory Last Values WBC 4.5 K/mm3 (4.5-11.0) 05/05/21 13:42 RBC 4.42 M/mm3 (3.65-5.03) 05/05/21 13:42 Hgb 12.8 gm/dl (10.1-14.3) 05/05/21 13:42 Hct 38.8 % (30.3-42.9) 05/05/21 13:42 MCV 88 fl (79-97) 05/05/21 13:42 MCH 29 pg (28-32) 05/05/21 13:42 MCHC 33 % (30-34) 05/05/21 13:42 RDW 15.6 % (13.2-15.2) H 05/05/21 13:42 Plt Count 296 K/mm3 (140-440) 05/05/21 13:42 Lymph % (Auto) 23.3 % (13.4-35.0) 05/05/21 13:42 Long % (Auto) 6.1 % (0.0-7.3) 05/05/21 13:42 Eos % (Auto) 0.7 % (0.0-4.3) 05/05/21 13:42 Baso % (Auto) 1.2 % (0.0-1.8) 05/05/21 13:42 Lymph # (Auto) 1.0 K/mm3 (1.2-5.4) L 05/05/21 13:42 Long # (Auto) 0.3 K/mm3 (0.0-0.8) 05/05/21 13:42 Eos # (Auto) 0.0 K/mm3 (0.0-0.4) 05/05/21 13:42 Baso # (Auto) 0.1 K/mm3 (0.0-0.1) 05/05/21 13:42 Seg Neutrophils % 68.7 % (40.0-70.0) 05/05/21 13:42 Seg Neutrophils # 3.1 K/mm3 (1.8-7.7) 05/05/21 13:42 PT 13.6 Sec. (12.2-14.9) 05/02/21 12:19 INR 0.99 (0.87-1.13) 05/02/21 12:19 APTT 25.8 Sec. (24.2-36.6) 05/02/21 12:19 D-Dimer 665.29 ng/mlDDU (0-234) H 05/05/21 13:42 Sodium 143 mmol/L (137-145) 05/07/21 06:58 Potassium 4.4 mmol/L (3.6-5.0) D 05/07/21 06:58 Chloride 107.7 mmol/L (98-107) H 05/07/21 06:58 Carbon Dioxide 26 mmol/L (22-30) 05/07/21 06:58 Anion Gap 14 mmol/L 05/07/21 06:58 BUN 11 mg/dL (7-17) 05/07/21 06:58 Creatinine 0.6 mg/dL (0.6-1.2) 05/07/21 06:58 Estimated GFR > 60 ml/min 05/07/21 06:58 BUN/Creatinine Ratio 18 % 05/07/21 06:58 Glucose 119 mg/dL (65-100) H 05/07/21 06:58 POC Glucose 74 mg/dL (70-105) 05/15/21 07:35 Lactic Acid 1.10 mmol/L (0.7-2.0) 05/02/21 12:19 Calcium 8.8 mg/dL (8.4-10.2) 05/07/21 06:58 Ferritin 913.0 ng/mL (10.0-200.0) H 05/05/21 13:42 Total Bilirubin 0.30 mg/dL (0.1-1.2) 05/02/21 12:04 AST 77 units/L (5-40) H 05/02/21 12:04 ALT 30 units/L (7-56) 05/02/21 12:04 Alkaline Phosphatase 48 units/L (35-129) 05/02/21 12:04 Ammonia 33.0 umol/L (25-60) 05/02/21 12:19 Lactate Dehydrogenase 317 units/L (91-180) H 05/05/21 13:42 Troponin T 0.030 ng/mL (0.00-0.029) H 05/02/21 19:22 C-Reactive Protein 5.10 mg/dL (0.00-1.30) H 05/05/21 13:42 NT-Pro-B Natriuret Pep 243.4 pg/mL (0-900) 05/02/21 12:04 Total Protein 6.8 g/dL (6.3-8.2) 05/02/21 12:04 Albumin 3.3 g/dL (3.9-5) L 05/02/21 12:04 Albumin/Globulin Ratio 0.9 % 05/02/21 12:04 Triglycerides 140 mg/dL (2-149) 05/02/21 12:04 Cholesterol 169 mg/dL (50-199) 05/02/21 12:04 LDL Cholesterol Direct 98 mg/dL (50-130) 05/02/21 12:04 HDL Cholesterol 47 mg/dL (40-59) 05/02/21 12:04 Cholesterol/HDL Ratio 3.59 % 05/02/21 12:04 Procalcitonin 0.11 ng/mL (<0.15) 05/05/21 13:42 Urine Color Yellow (Yellow) 05/02/21 Unknown Urine Turbidity Clear (Clear) 05/02/21 Unknown Urine pH 7.0 (5.0-7.0) 05/02/21 Unknown Ur Specific [place] 1.014 (1.003-1.030) 05/02/21 Unknown Urine Protein 100 mg/dl mg/dL (Negative) 05/02/21 Unknown Urine Glucose (UA) Neg mg/dL (Negative) 05/02/21 Unknown Urine Ketones Neg mg/dL (Negative) 05/02/21 Unknown Urine Blood Mod (Negative) 05/02/21 Unknown Urine Nitrite Neg (Negative) 05/02/21 Unknown Urine Bilirubin Neg (Negative) 05/02/21 Unknown Urine Urobilinogen 2.0 mg/dL (<2.0) 05/02/21 Unknown Ur Leukocyte Esterase Sm (Negative) 05/02/21 Unknown Urine WBC (Auto) 5.0 /HPF (0.0-6.0) 05/02/21 Unknown Urine RBC (Auto) 3.0 /HPF (0.0-6.0) 05/02/21 Unknown U Epithel Cells (Auto) 2.0 /HPF (0-13.0) 05/02/21 Unknown Urine Mucus Few /HPF 05/02/21 Unknown Salicylates < 0.3 mg/dL (2.8-20.0) L 05/02/21 12:04 Urine Opiates Screen Negative 05/02/21 Unknown Urine Methadone Screen Negative 05/02/21 Unknown Acetaminophen 5.0 ug/mL (10.0-30.0) L 05/02/21 12:04 Ur Barbiturates Screen Negative 05/02/21 Unknown Ur Phencyclidine Scrn Negative 05/02/21 Unknown Ur Amphetamines Screen Negative 05/02/21 Unknown U Benzodiazepines Scrn Negative 05/02/21 Unknown Urine Cocaine Screen Negative 05/02/21 Unknown U Marijuana (THC) Screen Negative 05/02/21 Unknown Drugs of Abuse Note Disclamer 05/02/21 Unknown Plasma/Serum Alcohol < 0.01 % (0-0.07) 05/02/21 12:04 Coronavirus (PCR) Positive (Negative) A 05/06/21 09:00 HIV 1&2 Antibody Rapid Reactive (Non React) 05/08/21 08:12 HIV P24 Antigen Non react (Non React) 05/08/21 08:12 Dennis/IV: Voiding Method Incontinent Active Medications - Current Medications Current Medications: Generic Name Dose Route Start Last Admin Trade Name Freq PRN Reason Stop Dose Admin Acetaminophen 650 mg 05/05/21 22:39 Acetaminophen 325 Mg Tab PO Q4H PRN Pain MILD(1-3)/Fever >100.5/DEVLIN Enoxaparin Sodium 40 mg 05/08/21 10:00 05/14/21 09:35 Enoxaparin 40 Mg/0.4 Ml Inj SUB-Q 40 mg QDAY@1000 DIANNE Administration Famotidine 20 mg 05/06/21 10:00 05/14/21 22:56 Famotidine 20 Mg Tab PO 20 mg BID DIANNE Administration Hydromorphone HCl 0.5 mg 05/05/21 22:45 Hydromorphone 1 Mg/1 Ml Inj IV Q3H PRN Pain , Severe (7-10) Ondansetron HCl 4 mg 05/05/21 22:39 Ondansetron 4 Mg/2 Ml Inj IV Q8H PRN Nausea And Vomiting Oxycodone/Acetaminophen 1 tab 05/05/21 22:45 Oxycodone /Acetaminophen 5-325mg Tab PO Q6H PRN Pain, Moderate (4-6) Sodium Chloride 10 ml 05/06/21 10:00 05/14/21 22:56 Sodium Chloride 0.9% 10 Ml Flush Syringe IV 10 ml BID DIANNE Administration Sodium Chloride 10 ml 05/05/21 22:39 Sodium Chloride 0.9% 10 Ml Flush Syringe IV PRN PRN LINE FLUSH Nutrition/Malnutrition Assess - Dietary Evaluation Nutrition/Malnutrition Findings: Nutrition Notes Start: 05/08/21 12:06 Freq: Status: Active Protocol: Document 05/14/21 16:35 MK (Rec: 05/14/21 16:37 MK [id number]) Nutrition Notes Initial or Follow up Reassessment Current Diagnosis Hypertension,Malnutrition, Stroke Other Pertinent Diagnosis COVID-19 (+), AMS, HIV, Aphasia Current Diet Cardiac, Pureed with [place] liquids Labs/Tests POC BG 68-128 Pertinent Medications Reviewed Height 5 ft 8.9 in Weight 49.89 kg [place] Body Weight (kg) 65.68 BMI 16.2 Weight Status Underweight Subjective/Other Information Per chart, pt eating 100% of meals. Pt non verbal. Percent of energy/protein needs met: 100%/100% Burn Absent Trauma Absent Current % PO Good (75-100%) Minimum of two criteria Yes Energy Intake (severe) < or equal to 50% Estimated Energy Requirement > or equal to 5 days Body Fat Depletion Moderate depletion (severe) Muscle Mass Moderate Depletion (severe) Protein-Calorie Malnutrition Severe #1 Nutrition Diagnosis Malnutrition Diagnosis Progress(for reassessment Continues documentation) Is patient on ventilator? No Is Patient Ambulatory and/or Out of Bed No REE-(Carver-St. Jeor-confined to bed) 1386.756 Kcal/Kg value to use for calculation 35 Approximate Energy Requirements Using 1746 kcal/Kg Calculation Used for Recommendations Kcal/kg Additional Notes Pro needs 1.2-1.5g/k-75g/ day Fluid needs 1ml/kcal Nutrition Intervention Change Diet Order: Continue current diet order Add Supplement/Snack (indicate name/kcal Ensure Enlive TID /protein ) Provides kCal: 1,050 Provides Protein (gm) 60 Goal #1 PO intake of meals plus ONS to meet 100% energy and pro needs Goal #2 Wt maintenance and/or gain Anticipated Discharge Needs: Continue ONS 2-3 times daily for wt maintenance Follow-Up By: 05/17/21 Additional Comments F/U: intakes
[2021-05-15] MEDS: ENOXAPARIN 40 MG/0.4 ML INJ SUB-Q SCH (09:23)
[2021-05-15] MEDS: FAMOTIDINE 20 MG TAB PO SCH ×2 (09:23→23:27)
[2021-05-16 06:23] LABS: Hematocrit 37.2 % (30.3-42.9); Hemoglobin 12.2 gm/dl (10.1-14.3); Mean Corpuscular HGB Conc 33 % (30-34); Mean Corpuscular Volume 88 fl (79-97); Platelet Count 578 K/mm3 (140-440); Red Blood Count 4.24 M/mm3 (3.65-5.03); Red Cell Distribution Width 15.4 % (13.2-15.2)
[2021-05-16 06:55] LABS: Basophils # (Auto) 0.1 K/mm3 (0.0-0.1); Basophils % (Auto) 1.3 % (0.0-1.8); Eosinophils % (Auto) 0.8 % (0.0-4.3); Lymphocytes # (Auto) 1.1 K/mm3 (1.2-5.4); Lymphocytes % (Auto) 18.3 % (13.4-35.0); Monocytes # (Auto) 0.7 K/mm3 (0.0-0.8); Monocytes % (Auto) 12.1 % (0.0-7.3)
[2021-05-16 07:32] LABS: BUN/Creatinine Ratio 21; Blood Urea Nitrogen 17 mg/dL (7-17); Calcium 8.8 mg/dL (8.4-10.2); Hemolysis Index 0
--- NOTE | 2021-05-16 08:43 | Progress Note ---
Assessment and Plan Assessment and plan: 56 old [id number] female with history of stroke, admitted due to altered mental status. Patient tested positive for COVID-19 on 05/03/2021: --COVID-19 infection; Continue steroid No indication for remdesivir Home O2 evaluation Prone positioning --Sepsis; Patient meets criteria given the tachycardia, altered mentation and COVID-19 infection --Acute hypoxic respiratory failure;[[brief drop in O2 sats] Currently no hypoxia on room air O2 sats --Hypernatremia; resolved --Transaminitis; improved --Toxic metabolic encephalopathy; present on admission multifactorial, significantly improved --HIV screening test positive; rest of the work-up as outpatient per ID --Severe malnutrition; BMI 16, hypoalbuminemia Due to underlying disease process, nutrition supplements Nutrition consult as needed --DVT prophylaxis; Lovenox DC planning per case management Awaiting SNF placement/authorization Closely monitor the patient and adjust management as needed 05/09/2021. Physical therapy recommends SNF and awaiting placement per case management. Patient with positive Covid test 05/03 and 05/06. Follow-up HIV RNA PCR and CD4 count. Continue dexamethasone 6 mg IV for total of 10 days. No ind ication for remdesivir as patient is on room air. Continue to monitor inflammatory markers. Continue anticoagulation per protocol. 05/10/2021. Await SNF placement. However, patient with positive Covid test 05/03 and 05/06. Follow-up HIV RNA PCR and CD4 count. Continue dexamethasone 6 mg IV for total of 10 days. No indication for remdesivir as patient is on room air. Continue to monitor inflammatory markers. Continue anticoagulation per protocol. 05/11/2021. No new issues. Await SNF placement. However, patient with positive Covid test 05/03 and 05/06. Follow-up HIV RNA PCR and CD4 count. Continue dexamethasone 6 mg IV for total of 10 days. No indication for remdesivir as patient is on room air. Continue to monitor inflammatory markers. Continue anticoagulation per protocol. 05/12/21. No new issues. Await SNF placement. However, patient with positive Covid test 05/03 and 05/06. Follow-up HIV RNA PCR and CD4 count. Continue dexamethasone 6 mg IV for total of 10 days. No indication for remdesivir as patient is on room air. Continue to monitor inflammatory markers. Continue anticoagulation per protocol. reports Ketty Garcia @ [facility] states she thinks she will be able to approve [facility] for [facility]. Authorization pending. 05/13/2021. Await authorization for SNF placement. Case management following. Continue dexamethasone. Continue to monitor inflammatory markers. Continue anticoagulation per protocol. 05/14/2021. Await authorization for SNF placement. Case management following. Continue dexamethasone. Continue to monitor inflammatory markers. Continue anticoagulation per protocol. 05/15/2021. Await authorization for SNF placement. Case management following. Completed dexamethasone. Continue to monitor inflammatory markers. Continue anticoagulation per protocol. Follow-up HIV RNA PCR, CD4 count. Patient will need to follow-up in ID clinic 2-3 weeks for HIV RNA PCR and CD4 results. Labs ordered for today. Follow-up CBC, BMP and ammonia level. Unsure of patient's baseline mental status. ER record reports patient with previous CVA and nonverbal. Will attempt to contact family and discuss with case management prior to discharge. 05/16/2021; awaiting SNF placement/authorization Hospitalist Physical - Constitutional Vitals: Temp Pulse Resp BP Pulse Ox 97.7 F 91 H 18 124/81 98 05/16/21 04:14 05/15/21 21:40 05/16/21 04:14 05/16/21 04:14 05/16/21 01:00 General appearance: Present: no acute distress HEART Score - HEART Score Troponin: Troponin T 0.030 ng/mL (0.00-0.029) H 05/02/21 19:22 Results - Labs CBC & Chem 7: 05/16/21 05:49 05/16/21 05:49 Labs: Laboratory Last Values WBC 5.8 K/mm3 (4.5-11.0) 05/16/21 05:49 RBC 4.24 M/mm3 (3.65-5.03) 05/16/21 05:49 Hgb 12.2 gm/dl (10.1-14.3) 05/16/21 05:49 Hct 37.2 % (30.3-42.9) 05/16/21 05:49 MCV 88 fl (79-97) 05/16/21 05:49 MCH 29 pg (28-32) 05/16/21 05:49 MCHC 33 % (30-34) 05/16/21 05:49 RDW 15.4 % (13.2-15.2) H 05/16/21 05:49 Plt Count 578 K/mm3 (140-440) H 05/16/21 05:49 Lymph % (Auto) 18.3 % (13.4-35.0) 05/16/21 05:49 [place] % (Auto) 12.1 % (0.0-7.3) H 05/16/21 05:49 Eos % (Auto) 0.8 % (0.0-4.3) 05/16/21 05:49 Baso % (Auto) 1.3 % (0.0-1.8) 05/16/21 05:49 Lymph # (Auto) 1.1 K/mm3 (1.2-5.4) L 05/16/21 05:49 [place] # (Auto) 0.7 K/mm3 (0.0-0.8) 05/16/21 05:49 Eos # (Auto) 0.0 K/mm3 (0.0-0.4) 05/16/21 05:49 Baso # (Auto) 0.1 K/mm3 (0.0-0.1) 05/16/21 05:49 Seg Neutrophils % 67.5 % (40.0-70.0) 05/16/21 05:49 Seg Neutrophils # 3.9 K/mm3 (1.8-7.7) 05/16/21 05:49 PT 13.6 Sec. (12.2-14.9) 05/02/21 12:19 INR 0.99 (0.87-1.13) 05/02/21 12:19 APTT 25.8 Sec. (24.2-36.6) 05/02/21 12:19 D-Dimer 665.29 ng/mlDDU (0-234) H 05/05/21 13:42 Sodium 137 mmol/L (137-145) 05/16/21 05:49 Potassium 4.0 mmol/L (3.6-5.0) 05/16/21 05:49 Chloride 99.4 mmol/L (98-107) 05/16/21 05:49 Carbon Dioxide 29 mmol/L (22-30) 05/16/21 05:49 Anion Gap 13 mmol/L 05/16/21 05:49 BUN 17 mg/dL (7-17) 05/16/21 05:49 Creatinine 0.8 mg/dL (0.6-1.2) 05/16/21 05:49 Estimated GFR > 60 ml/min 05/16/21 05:49 BUN/Creatinine Ratio 21 % 05/16/21 05:49 Glucose 90 mg/dL (65-100) 05/16/21 05:49 POC Glucose 77 mg/dL (70-105) 05/16/21 07:58 Lactic Acid 1.10 mmol/L (0.7-2.0) 05/02/21 12:19 Calcium 8.8 mg/dL (8.4-10.2) 05/16/21 05:49 Ferritin 913.0 ng/mL (10.0-200.0) H 05/05/21 13:42 Total Bilirubin 0.30 mg/dL (0.1-1.2) 05/02/21 12:04 AST 77 units/L (5-40) H 05/02/21 12:04 ALT 30 units/L (7-56) 05/02/21 12:04 Alkaline Phosphatase 48 units/L (35-129) 05/02/21 12:04 Ammonia 11.0 umol/L (25-60) L 05/15/21 13:38 Lactate Dehydrogenase 317 units/L (91-180) H 05/05/21 13:42 Troponin T 0.030 ng/mL (0.00-0.029) H 05/02/21 19:22 C-Reactive Protein 5.10 mg/dL (0.00-1.30) H 05/05/21 13:42 NT-Pro-B Natriuret Pep 243.4 pg/mL (0-900) 05/02/21 12:04 Total Protein 6.8 g/dL (6.3-8.2) 05/02/21 12:04 Albumin 3.3 g/dL (3.9-5) L 05/02/21 12:04 Albumin/Globulin Ratio 0.9 % 05/02/21 12:04 Triglycerides 140 mg/dL (2-149) 05/02/21 12:04 Cholesterol 169 mg/dL (50-199) 05/02/21 12:04 LDL Cholesterol Direct 98 mg/dL (50-130) 05/02/21 12:04 HDL Cholesterol 47 mg/dL (40-59) 05/02/21 12:04 Cholesterol/HDL Ratio 3.59 % 05/02/21 12:04 Procalcitonin 0.11 ng/mL (<0.15) 05/05/21 13:42 Urine Color Yellow (Yellow) 05/02/21 Unknown Urine Turbidity Clear (Clear) 05/02/21 Unknown Urine pH 7.0 (5.0-7.0) 05/02/21 Unknown Ur Specific [place] 1.014 (1.003-1.030) 05/02/21 Unknown Urine Protein 100 mg/dl mg/dL (Negative) 05/02/21 Unknown Urine Glucose (UA) Neg mg/dL (Negative) 05/02/21 Unknown Urine Ketones Neg mg/dL (Negative) 05/02/21 Unknown Urine Blood Mod (Negative) 05/02/21 Unknown Urine Nitrite Neg (Negative) 05/02/21 Unknown Urine Bilirubin Neg (Negative) 05/02/21 Unknown Urine Urobilinogen 2.0 mg/dL (<2.0) 05/02/21 Unknown Ur Leukocyte Esterase Sm (Negative) 05/02/21 Unknown Urine WBC (Auto) 5.0 /HPF (0.0-6.0) 05/02/21 Unknown Urine RBC (Auto) 3.0 /HPF (0.0-6.0) 05/02/21 Unknown U Epithel Cells (Auto) 2.0 /HPF (0-13.0) 05/02/21 Unknown Urine Mucus Few /HPF 05/02/21 Unknown Salicylates < 0.3 mg/dL (2.8-20.0) L 05/02/21 12:04 Urine Opiates Screen Negative 05/02/21 Unknown Urine Methadone Screen Negative 05/02/21 Unknown Acetaminophen 5.0 ug/mL (10.0-30.0) L 05/02/21 12:04 Ur Barbiturates Screen Negative 05/02/21 Unknown Ur Phencyclidine Scrn Negative 05/02/21 Unknown Ur Amphetamines Screen Negative 05/02/21 Unknown U Benzodiazepines Scrn Negative 05/02/21 Unknown Urine Cocaine Screen Negative 05/02/21 Unknown U Marijuana (THC) Screen Negative 05/02/21 Unknown Drugs of Abuse Note Disclamer 05/02/21 Unknown Plasma/Serum Alcohol < 0.01 % (0-0.07) 05/02/21 12:04 Coronavirus (PCR) Positive (Negative) A 05/06/21 09:00 HIV 1&2 Antibody Rapid Reactive (Non React) 05/08/21 08:12 HIV P24 Antigen Non react (Non React) 05/08/21 08:12 Dennis/IV: Voiding Method Incontinent Active Medications - Current Medications Current Medications: Generic Name Dose Route Start Last Admin Trade Name Freq PRN Reason Stop Dose Admin Acetaminophen 650 mg 05/05/21 22:39 Acetaminophen 325 Mg Tab PO Q4H PRN Pain MILD(1-3)/Fever >100.5/DEVLIN Enoxaparin Sodium 40 mg 05/08/21 10:00 05/15/21 09:23 Enoxaparin 40 Mg/0.4 Ml Inj SUB-Q 40 mg QDAY@1000 DIANNE Administration Famotidine 20 mg 05/06/21 10:00 05/15/21 23:27 Famotidine 20 Mg Tab PO 20 mg BID DIANNE Administration Hydromorphone HCl 0.5 mg 05/05/21 22:45 Hydromorphone 1 Mg/1 Ml Inj IV Q3H PRN Pain , Severe (7-10) Ondansetron HCl 4 mg 05/05/21 22:39 Ondansetron 4 Mg/2 Ml Inj IV Q8H PRN Nausea And Vomiting Oxycodone/Acetaminophen 1 tab 05/05/21 22:45 Oxycodone /Acetaminophen 5-325mg Tab PO Q6H PRN Pain, Moderate (4-6) Sodium Chloride 10 ml 05/06/21 10:00 05/15/21 23:26 Sodium Chloride 0.9% 10 Ml Flush Syringe IV 10 ml BID DIANNE Administration Sodium Chloride 10 ml 05/05/21 22:39 Sodium Chloride 0.9% 10 Ml Flush Syringe IV PRN PRN LINE FLUSH Nutrition/Malnutrition Assess - Dietary Evaluation Nutrition/Malnutrition Findings: Nutrition Notes Start: 05/08/21 12:06 Freq: Status: Active Protocol: Document 05/14/21 16:35 MK (Rec: 05/14/21 16:37 MK [id number]) Nutrition Notes Initial or Follow up Reassessment Current Diagnosis Hypertension,Malnutrition, Stroke Other Pertinent Diagnosis COVID-19 (+), AMS, HIV, Aphasia Current Diet Cardiac, Pureed with [place] liquids Labs/Tests POC BG 68-128 Pertinent Medications Reviewed Height 5 ft 8.9 in Weight 49.89 kg [place] Body Weight (kg) 65.68 BMI 16.2 Weight Status Underweight Subjective/Other Information Per chart, pt eating 100% of meals. Pt non verbal. Percent of energy/protein needs met: 100%/100% Burn Absent Trauma Absent Current % PO Good (75-100%) Minimum of two criteria Yes Energy Intake (severe) < or equal to 50% Estimated Energy Requirement > or equal to 5 days Body Fat Depletion Moderate depletion (severe) Muscle Mass Moderate Depletion (severe) Protein-Calorie Malnutrition Severe #1 Nutrition Diagnosis Malnutrition Diagnosis Progress(for reassessment Continues documentation) Is patient on ventilator? No Is Patient Ambulatory and/or Out of Bed No REE-([place]-St. Jeor-confined to bed) 1386.756 Kcal/Kg value to use for calculation 35 Approximate Energy Requirements Using 1746 kcal/Kg Calculation Used for Recommendations Kcal/kg Additional Notes Pro needs 1.2-1.5g/k-75g/ day Fluid needs 1ml/kcal Nutrition Intervention Change Diet Order: Continue current diet order Add Supplement/Snack (indicate name/kcal Ensure Enlive TID /protein ) Provides kCal: 1,050 Provides Protein (gm) 60 Goal #1 PO intake of meals plus ONS to meet 100% energy and pro needs Goal #2 Wt maintenance and/or gain Anticipated Discharge Needs: Continue ONS 2-3 times daily for wt maintenance Follow-Up By: 05/17/21 Additional Comments F/U: intakes
[2021-05-16] MEDS: FAMOTIDINE 20 MG TAB PO SCH (09:45)
[2021-05-16] MEDS: ENOXAPARIN 40 MG/0.4 ML INJ SUB-Q SCH (09:45)
--- NOTE | 2021-05-16 11:48 | Discharge Summary ---
Providers - Providers Date of Admission: 05/05/21 10:00 Date of discharge: 05/16/21 Attending physician: PHILOMENA SALINAS 05/02/21 19:21 Consult to Case Management [CONS] Stat Services Needed at Discharge: Other Notified:: yes Additional Physician Instructions: APS 05/03/21 08:23 Consult to Case Management [CONS] Stat Services Needed at Discharge: Other Notified:: [place] Was contact made?: Yes Time called:: 08:40 05/03/21 11:15 Physical Therapy Evaluation and Treat [CONS] Urgent Comment: Reason For Exam: eval and treat 05/03/21 11:22 Occupational Therapy Evaluate and Treat [CONS] Urgent Comment: Reason For Exam: eval and treat 05/06/21 07:30 Consult to Physician [CONS] Routine Comment: Consulting Provider: LINDA GRAYSON Physician Instructions: Reason For Exam: Covid 05/08/21 14:10 Speech Therapy Evaluation and Treat [CONS] Routine Reason For Exam: coughs on thin liquid 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 Hospitalization Condition: Stable Disposition: [facility] Time spent for discharge: 35 min Core Measure Documentation - Palliative Care Palliative Care/ Comfort Measures: Not Applicable - Core Measures Any of the following diagnoses?: none Exam - Constitutional Vitals: Temp Pulse Resp BP Pulse Ox 97.7 F 91 H 18 124/81 98 05/16/21 04:14 05/15/21 21:40 05/16/21 04:14 05/16/21 04:14 05/16/21 01:00 General appearance: Present: no acute distress, cachectic, disheveled - EENT Eyes: Present: PERRL, EOM intact - Neck Neck: Present: supple, normal ROM - Respiratory Respiratory effort: normal Respiratory: bilateral: diminished, rhonchi, negative: rales, wheezing - Cardiovascular Rhythm: regular Heart Sounds: Present: S1 & S2 - Extremities Extremities: no ischemia, No edema - Abdominal General gastrointestinal: Present: soft, non-tender, non-distended, normal bowel sounds - Integumentary Integumentary: Present: clear, warm - Musculoskeletal Musculoskeletal: strength equal bilaterally - Psychiatric Psychiatric: appropriate mood/affect, cooperative - Neurologic Neurologic: moves all extremities Plan Activity: advance as tolerated, fall precautions Diet: other (Pured diet) Additional Instructions: Advised to strictly follow COVID-19 isolation precautions, masking, social distancing, prone positioning, and other guidelines per COVID-19. if you have worsening symptoms, contact MD or go to emergency room as needed. Advised dietary supplements like Ensure, or boost 3 times a day Follow up with: PRIMARY CARE, [Primary Care Provider] - 7 Days LINDA GRAYSON MD [Staff Physician] - 14 Days Prescriptions: Famotidine [Pepcid] 20 mg PO BID #60 tablet
[2021-05-16 12:56] VITALS: BP 107/69
[2021-05-16 15:23] LABS: Total Cells Counted 100
[2021-05-17 14:00] LABS: HIV-1 RNA QN PCR 5.31 Log cps/mL
[2021-05-17 16:10] LABS: CD4/CD8 Ratio 0.97 (0.86-5.00)
[2021-05-24 08:39] LABS: HIV-1 Antibody Differentiation SEE SCANNED RESULT; HIV-2 Antibody Differentiation SEE SCANNED RESULT
== END 2021-05-16 16:50 | DRG 177 ==
LOC: ED 10:09 → 3A 05-05 10:00
PROVIDERS: ADMIT Internal Medicine; ATTEND Internal Medicine
DX: U07.1 COVID-19 (principal); J96.01 Acute respiratory failure with hypoxia; A41.9 Sepsis, unspecified organism; G92 Toxic encephalopathy; E43 Unspecified severe protein-calorie malnutrition; E87.0 Hyperosmolality and hypernatremia; Z68.1 Body mass index [BMI] 19.9 or less, adult; E86.0 Dehydration; I10 Essential (primary) hypertension; R74.01 Elevation of levels of liver transaminase levels; E87.6 Hypokalemia; Z21 Asymptomatic human immunodeficiency virus [HIV] infection status; Z82.49 Family history of ischemic heart disease and other diseases of the circulatory system; I69.320 Aphasia following cerebral infarction; Z74.01 Bed confinement status
CPT/HCPCS: 36415; 70450; 71045; 80048; 80053; 80061; 80307; 80320; 81001; 82024; 82140; 82728; 82962; 83615; 83880; 84145; 84484; 85007; 85025; 85379; 85610; 85730; 86140; 86689; 87040; 87536; 87806; 93005; 96360; 99284; G0378; G0480; J0360; J0456; J0696; J1100; J1650; J3480; J3486; J7030; J8540; U0003